=== PATIENT | male | born 1965 | race Caucasian/White ===

== ENCOUNTER 2020-08-22 14:49 | Outpatient (REF) | payer OTHER, SELFPAY ==
--- NOTE | ~2020-08-22 | MR_ITS ---
EXAMINATION: MR KNEE WITHOUT CONTRAST, RIGHT CLINICAL INFORMATION: Unspecified tear of unspecified meniscus, current injury, right knee, initial encounter. Right knee pain. Surgery February 2020. COMPARISON: None TECHNIQUE: MRI of the knee without contrast was performed using routine sequences on a high-field scanner. FINDINGS: MENISCI: Medial Meniscus: The meniscal body is diminished in size, partially extruded medially from the joint line, likely due to a combination of meniscal degeneration and prior partial meniscectomy. There is a degenerative tear of the anterior half of the meniscal body with a dominant horizontal/longitudinal component and extrusion of the majority of the meniscal body from the joint line. A small horizontal undersurface component of the tear is present in the posterior horn. Lateral Meniscus: There is significant free-edge fraying of the posterior horn of the root insertion with subtle undersurface partial tearing is suspected on images 15/26 of series 3 and 4. Lateral meniscus is otherwise intact. No meniscal extrusion. LIGAMENTS: Cruciate: ACL is markedly thickened with increased intrasubstance signal throughout as well as underlying marrow edema signal at the femoral origin and, to a lesser extent, the tibial insertion, consistent with mucoid degeneration. No tears. PCL is intact. Collateral: Trace fluid within the MCL bursa and edema signal around the coronoid ligament are likely reactive to the underlying articular and meniscal abnormalities. MCL and fibular collateral ligaments are intact. Popliteus and biceps tendons are normal. EXTENSOR MECHANISM: Quadriceps and patellar tendons are intact. Minimal patellar tendinosis at the insertion. No tears. ARTICULAR CARTILAGE/BONE: Patellofemoral Compartment: Small to moderate-sized marginal osteophytes. There is mild chondral surface irregularity at the medial patellar facet. At the inferior aspect of the medial trochlear facet, there is a 0.7 x 0.6 cm non-marginal osteophyte with surrounding chondral fissuring. Medial Compartment: Diffuse full-thickness articular cartilage loss is present in the majority of the medial femoral condyle and medial tibial plateau, sparing the far lateral margins. There is associated articular surface remodeling, subarticular marrow edema, articular sclerosis, and prominent marginal osteophytes. Lateral Compartment: Moderate nonuniform articular cartilage loss is present at the medial half of the lateral tibial plateau, extending onto the lateral tibial spine. There is more mild adjacent chondral thinning at the lateral femoral condyle. Small marginal osteophytes are noted. JOINT FLUID AND BURSAE: Moderate to large joint effusion and Zhang's cyst. There is fluid escaping the Zhang's cyst into the superficial fascial plane overlying the medial head of the gastrocnemius muscle, partially included on this study. A synovial cyst is present at the popliteus tendon sheath. MR/MR knee RT wo con IMPRESSION: 1. Severe medial compartment osteoarthritis with associated meniscal degeneration and extrusion of the meniscal body. Probable prior partial meniscectomy. Additional degenerative tearing is evident at the anterior half of the medial meniscal body. 2. Free-edge fraying at the posterior horn of the lateral meniscus with probable subtle undersurface partial tear at the posterior root insertion. 3. Marked mucoid degeneration of the ACL. 4. Mild patellofemoral and [id number] lateral compartment osteoarthritis.
--- NOTE | ~2020-08-22 | XR_ITS ---
EXAMINATION: XR ORBITS (PRE-MRI SCREEN) CLINICAL INFORMATION: Metal injury orbits at 12 years. COMPARISON: None TECHNIQUE: The orbits are imaged in 3 views. FINDINGS: There is no orbital metallic foreign body demonstrated. The orbital rims and floors are unremarkable. There are no air-fluid levels in the sinuses. XR/XR pre mri screening IMPRESSION: No orbital metallic foreign body demonstrated.
== END 2020-08-22 14:50 | disposition home or self-care (01) ==
LOC: HO.MRI 14:49
PROVIDERS: PCP Physician Assistant; Visit Provider Physician Assistant
DX: S83.206A Unspecified tear of unspecified meniscus, current injury, right knee, initial encounter (principal)
CPT/HCPCS: 73721

== ENCOUNTER 2020-09-17 09:52 | Outpatient (REF) | payer OTHER, SELFPAY ==
--- NOTE | ~2020-09-17 | XR_ITS ---
EXAMINATION: XR KNEE, RIGHT CLINICAL INFORMATION: Unspecified tear of unspecified meniscus, current COMPARISON: MRI dated 08/22/2020 TECHNIQUE: AP, lateral, tunnel, and sunrise views of the right knee. FINDINGS: Severe osteoarthritis in the medial compartment as characterized by complete joint space narrowing at the posterior weightbearing surface, subchondral sclerosis, articular surface remodeling, and marginal osteophytes as well as varus angulation at the knee joint. More mild osteoarthritis is evident at the patellofemoral compartments. There is a moderate-sized joint effusion. Soft tissues are swollen at the knee. No acute fractures are identified. XR/XR knee RT 4V IMPRESSION: Severe medial compartment osteoarthritis with mild varus angulation at the knee. Mild lateral and patellofemoral compartment osteoarthritis. Moderate-sized joint effusion.
[2020-09-17 11:06] LABS: Estimated Average Glucose 100 mg/dL; Hemoglobin A1c % 5.1 %
[2020-09-17 11:18] LABS: Alanine Aminotransferase 18 U/L (0-40); Albumin Level 4.2 g/dL (3.5-5.0); Alkaline Phosphatase 106 U/L (39-117); Anion Gap 14 (12-20); Aspartate Amino Transferase 20 U/L (5-37); Bilirubin Total 0.4 mg/dL (0.0-1.0); Blood Urea Nitrogen 13 mg/dL (9-16); Calcium 9.1 mg/dL (8.4-10.2); Carbon Dioxide 28 mmol/L (22-29); Chloride 100 mmol/L (96-108); Cholesterol 199 mg/dL; Estimated Glomerular Filt Rate > 60; Glucose Fasting 79 mg/dL (60-99); HDL Cholesterol 65 mg/dL; LDL Cholesterol Calculated 116 mg/dl; Potassium 4.3 mmol/L (3.3-5.1); Sodium 138 mmol/L (135-145); Total Protein 7.4 g/dL (6.5-8.0); Triglycerides 93 mg/dL
[2020-09-17 11:41] LABS: Prostate Specific Antigen Scr 0.17 ng/mL (<0.05-4.0)
== END 2020-09-17 09:53 | disposition home or self-care (01) ==
LOC: HO.LAB 09:52
PROVIDERS: PCP Physician Assistant; Visit Provider Physician Assistant
DX: Z13.220 Encounter for screening for lipoid disorders (principal); Z12.11 Encounter for screening for malignant neoplasm of colon; Z12.5 Encounter for screening for malignant neoplasm of prostate; Z13.1 Encounter for screening for diabetes mellitus; S83.206A Unspecified tear of unspecified meniscus, current injury, right knee, initial encounter
CPT/HCPCS: 36415; 73564; 80053; 80061; 83036; 84153

== ENCOUNTER → 2020-09-23 12:30 | Outpatient (BNVA) | payer OTHER, SELFPAY | PROVIDERS: Visit Provider Physician Assistant ==

== ENCOUNTER 2020-10-30 08:44 | Outpatient (REF) | payer OTHER, SELFPAY | END 2020-10-30 08:45 | disposition home or self-care (01) | LOC: HO.HOSX 08:44 | PROVIDERS: Visit Provider Orthopaedic Surgery | DX: Z13.89 Encounter for screening for other disorder (principal) ==

== ENCOUNTER 2020-11-07 09:00 | Day surgery (SDC) | payer OTHER, SELFPAY ==
--- NOTE | 2020-11-05 14:05 | P.CONAN_ITS ---
Documented by User: Meghan Mcdonald 11/05/20 14:06 HPI - Anesthesia Eval Consult details Narrative: 55yo M for Colonoscopy [facility] Active Problems Active Problems: All Active Problems (Updated 11/03/20 @ 14:12 by Nidhi Rodriguez) Right knee meniscal tear (Acute) Right knee buckling (Acute) Screening for diabetes mellitus (DM) (Acute) Screening for hypercholesterolemia (Acute) Colon cancer screening (Acute) Past Medical History Medical History Allergic rhinitis Arthritis DDD (degenerative disc disease), lumbar Sciatic leg pain Surgical History Surgical History Hx of elbow surgery Hx of right inguinal hernia repair Social History Social History Household Members: Spouse and Children Patient Tobacco Use Status: Current everyday Tobacco user Tobacco use type: Cigarette Cigarettes Per Day: 7 Are you DNR?: No Advance Directives: No Advance Directives Information Provided: Yes Current occupational status: employed Current occupation: [employer] Allergies Allergy/AdvReac Type Severity Reaction Status Date / Time No Known Allergies Allergy Verified 11/03/20 14:12 Home Medications Medication Instructions Recorded Confirmed Last Taken Type buprenorphine-naloxone [Suboxone] 1 strip SUBLINGUAL DAILY 11/03/20 11/03/20 Unknown History Exam Exam Date and Time: November 05, 2020 1405 Pertinent Lab Results Pertinent Lab Results: Laboratory Tests 12/29/19 09/17/20 08:07 10:18 WBC 7.7 Hgb 15.5 Hct 46.1 Plt Count 286 Sodium 138 Potassium 4.3 Chloride 100 Carbon Dioxide 28 BUN 13 Creatinine 0.81 Assessment and Plan Assessment Anesthesia Assessment: Chart Reviewed Documented by User: Dasia Stevenson 11/07/20 10:03 [facility] Past Medical History Medical History Allergic rhinitis Arthritis DDD (degenerative disc disease), lumbar Sciatic leg pain Surgical History Surgical History Hx of elbow surgery Hx of right inguinal hernia repair Social History Social History Household Members: Spouse and Children Patient Tobacco Use Status: Current everyday Tobacco user Tobacco use type: Cigarette Cigarettes Per Day: 7 Are you DNR?: No Advance Directives: No Advance Directives Information Provided: Yes Current occupational status: employed Current occupation: [employer] Meds Allergies Allergy/AdvReac Type Severity Reaction Status Date / Time No Known Allergies Allergy Verified 11/03/20 14:12 Home Medications Medication Instructions Recorded Confirmed Last Taken Type buprenorphine-naloxone [Suboxone] 1 strip SUBLINGUAL DAILY 11/03/20 11/03/20 Unknown History Exam Airway Mallampati Class: II TM Dist: >3cm Neck ROM: Full Partial: Upper Heart: rrr Lungs: cta Assessment and Plan Assessment Anesthesia Assessment: Anesthesia Plan Discussed and Chart Reviewed Final Anesthetic Review NPO: Yes (Sio water with meds) ASA Class: II Final Preanesthetic Review: No Changes in Pt Med Stat and Consent Obtained/Reviewed Patient Risk: Intermediate Procedure Risk: Intermediate Anesthetic Plan Anesthetic Plan: MAC: Disposition: Standard PACU
[2020-11-07 09:28] VITALS: BP 125/83; PULSE 72; RESP 18; TEMP 36.6; O2SAT 96; BMI 24.4
[2020-11-07] MEDS: Lactated Ringers 1,000 ML 100 ML IVCONT (09:36)
--- NOTE | 2020-11-07 10:00 | W.PM.OPN ---
Operative Note Operative Note Date of Service: 11/07/20 Narrative: Pre-op diagnosis: Colon cancer screening Post-op diagnosis: other (Colon polyps, diverticulosis, hemorrhoids) Procedure: COLONOSCOPY TILL CECUM WITH BIOPSIES AND SNARE POLYPECTOMY Consent: Indications for the procedure and potential complications of bleeding, perforation, reaction to medications and missed diagnosis were discussed with the patient and informed consent was obtained. Instrument: Olympus CF H 190 L variable stiffness adult colonoscope Monitoring: Vital signs and clinical assessment, intermittent blood pressure monitoring, continuous EKG monitoring, Pulse oximetry and Carbon Dioxide monitoring were done throughout the procedure. Colon withdrawl time was 21 minutes. Procedure: The patient was placed in the left lateral decubitis position and pre-procedure medications were administered. After a digital rectal examination of the ano-rectum, the video colonoscope was inserted into the rectum and advanced through the colon to the cecum. The colonoscope was slowly withdrawn in a retrograde panoramic fashion and the colon mucosa was carefully examined including a retroflexed view of the rectum. Findings and interventions are described below. Procedure Difficulty: LLQ pressure applied to intubate the cecum Findings: Terminal Ileum: Not evaluated Cecum: Normal Ascending Colon: Two 8-10 mm sessile polyps in the distal AC removed with a cold snare. Transverse Colon: Normal Descending Colon: Moderate diverticulosis Sigmoid Colon: Severe diverticulosis with luminal narrowing and a sharp turn at 20 cms Rectum: Few 5-7 mm diminutive appearing polyps - one was removed with the cold biopsy Ano-rectum: Small internal hemorrhoids Colon preparation: Good after copious irrigation and fair in some parts of the colon Impression and Post Procedure Diagnosis: Colonoscopy Findings: Three small to medium sized polyps removed Moderate to severe diverticulosis seen in the left colon Small hemorrhoids on retroflexed exam. Plan: Await pathology results Patient has an appointment on 11/26/20 in the [facility] with JOSE Calderon . Repeat Colonoscopy interval based on path results - in 3-5 years if polyps are adenomatous and 10 years if polyps are hyperplastic. Above findings were reviewed with the patient and colon polyps and diverticulosis handouts were given in the discharge area Surgeon: Yannick Flores MD Anesthesia: MAC (Dr Bueno) Was an Elephant Keeper used for this Procedure?: Yes Elephant Keeper: Afshan Mcelroy Estimated blood loss (mL): 0 Pathology: other (A. AC polyps x 2, B. Rectal polyp x1) Condition: stable Disposition: PACU
--- NOTE | 2020-11-07 10:00 | MHC.SHP ---
Pre-Procedural Eval Section A The patient is an INPATIENT: No The History & Physical has been completed within 30 days and I have reviewed it.: No Section B Chief Complaint: Screening Details of Present Illness: Colon Cancer screening Relevant Family History (Specify if Yes): No Relevant Social History: Tobacco Use Present Medications: see Short Stay Collaborative assessment Medical History: Significant History (Meniscal tear of right knee) History of Previous Operations: Relevant previous surgery/procedure and date(s) (Right inguinal hernia surgery) Allergies: Allergies Allergy/AdvReac Type Severity Reaction Status Date / Time No Known Allergies Allergy Verified 11/03/20 14:12 Review of Systems Sugical H&P ROS: Negative: Constitution, Cardiovascular, Respiratory and Gastrointestinal Exam Surgical H&P Exam: Normal: Heart, Normal: Lungs, Normal: Extremities and Normal: Abdomen Plan Diagnosis/Plan: Unchanged I have reviewed the history and physical and performed a pertinent physical examination on my patient. No changes have occurred unless specified.
[2020-11-07 10:50] VITALS: BP 123/76; PULSE 69; RESP 16; TEMP 36.2; O2SAT 95
== END 2020-11-07 11:19 | disposition home or self-care (01) ==
PROVIDERS: PCP Physician Assistant; Visit Provider Internal Medicine Gastroenterology
PROC: 0DJD8ZZ Inspection of Lower Intestinal Tract, Via Natural or Artificial Opening Endoscopic (ICD-10-PCS; CPT 45378; principal; 2020-11-07 10:10)
DX: Z12.11 Encounter for screening for malignant neoplasm of colon (principal); D12.2 Benign neoplasm of ascending colon; K62.1 Rectal polyp; K57.30 Diverticulosis of large intestine without perforation or abscess without bleeding; K64.8 Other hemorrhoids; J30.9 Allergic rhinitis, unspecified; F17.210 Nicotine dependence, cigarettes, uncomplicated; Z79.899 Other long term (current) drug therapy
CPT/HCPCS: 45385; 45380; 88305

== ENCOUNTER 2020-11-10 08:10 | Outpatient (REF) | payer OTHER, SELFPAY ==
--- NOTE | ~2020-11-10 | XR_ITS ---
EXAMINATION: XR KNEE AP STANDING CLINICAL INFORMATION: Knee pain COMPARISON: Radiographs right knee 09/17/2020. TECHNIQUE: Standing AP view of both knees is performed. FINDINGS: Right: There is marked narrowing medial knee joint compartment with subchondral sclerosis and osteophytes from the medial femoral condyle and medial tibial plateau. There is mild genu varus. No visible erosive change or chondrocalcinosis. No destructive process. Left: There is prominent narrowing medial compartment with mild subchondral sclerosis and osteophytes. Severity is lesser than that on the right. There is mild secondary genu varus. No erosive change or definite chondrocalcinosis. No destructive process. XR/XR knee standing BI IMPRESSION: Prominent bilateral medial compartment osteoarthritis, greater on right. Mild bilateral secondary genu varus.
== END 2020-11-10 08:11 | disposition home or self-care (01) ==
LOC: HO.HOSX 08:10
PROVIDERS: Visit Provider Orthopaedic Surgery
DX: M17.11 Unilateral primary osteoarthritis, right knee (principal)
CPT/HCPCS: 20610; 73565; 99212; J1100

== ENCOUNTER → 2020-11-26 10:23 | Outpatient (BNVA) | payer OTHER, SELFPAY | PROVIDERS: PCP Physician Assistant; Visit Provider Physician Assistant ==

== ENCOUNTER 2023-06-28 08:39 | Outpatient (AMB) | payer OTHER, SELFPAY ==
[2023-06-28 08:47] VITALS: BP 100/60; PULSE 67; BMI 23.1
--- NOTE | 2023-06-28 08:47 | A.OFFPC_ITS ---
Vital Signs 06/28/23 08:47 Height 6 ft Weight 170 lb BMI 23.1 BP 100/60 Blood Pressure Location Lt brachial Position Sitting Pulse 67 Pulse Source Pulse Oximeter Oxygen Delivery Method Room Air Intake Visit Reasons: Med review Venetian Blind Tape Cutter Required: No Computer Service Technician: Not Required per policy Accompanied by: Self / Same As Patient Allergies No Known Allergies Allergy (Verified 06/28/23 09:03) Medication List - Last Reconciled 06/28/23 by Alli Nunez PA-C buprenorphine-naloxone 8-2 mg (Suboxone) 1 strip sublingual DAILY gabapentin 800 mg PO BID 30 days ibuprofen 800 mg PO Q8H omeprazole 20 mg PO DAILY sucralfate 10 mL PO BID Tobacco use date assessed: 06/28/23 Dental Screening Dental Screen Date: 06/28/23 Did you have a dental visit in the last 12 months?: No Did you have a dental problem in the last 6 months where you did not have access to dental care?: No Was dental information given to patient?: Patient has dentist HPI Med review HPI Details Patient is a 58 year male here today for visit.? Patient has a past history significant Knee osteoarthritis and bad lateral MCP arthritis, opiate dependence, smoker, tubular adenoma of colon. Osteoarthritis: works full-time in [email or web address] . has been seen by orthopedic whom recommended joint replacement of his knee though has not been able to do this due to his heavy workload and inability to take time off of work. has been using ibuprofen and 600 gabapentin BID and feels some improvement in his pain though would like an increased dose.. ?REport he recently Bukled his right knee while moving right knee in Feb 2020. HE report he felt a pop sensation during this incident. Has been ambulating on his knee over the last 6 months and feels at time his right knee gives out while stepping in certain positions.? .. smoker: he does understand he needs to quit smoking and has found it very difficult to do so. Has tried nicotine replacement and Chantix without any positive results. .. Opiate dependence: he continues to follow a Suboxone clinic( [facility]) he plans on weaning off of Suboxone in the near future. 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 1. Little interest or pleasure in doing things: not at all 2. Feeling down, depressed, or hopeless: not at all 3. Trouble falling or staying asleep, or sleeping too much: not at all 4. Feeling tired or having little energy: not at all 5. Poor appetite or overeating: not at all 6. Feeling bad about yourself - or that you are a failure or have let yourself or your family down: not at all 7. Trouble concentrating on things, such as reading the newspaper or watching television: not at all 8. Moving or speaking so slowly that other people could have noticed. Or the opposite - being so fidgety or restless that you have been moving around a lot more than usual: not at all 9. Thoughts that you would be better off or of hurting yourself in some way: not at all Total score: 0 Depression Screening Interpretation: Negative Depression Screening Done: Yes 90555 - PHQ-9 Billing: Yes Source: Developed by Drs. Horacio Menard, Liliya Yoo, Kasi Ayers and colleagues, with an educational genevieve from [employer]. Thrive Questionnaire Date Thrive assessed: 06/28/23 I am a: Patient What is your living situation today?: I have a steady place to live Within the past 12 months, did the food you bought not last and you didn't have the money to get more?: Never true Within the past 12 months, did you worry whether your food would run out before you got money to buy more?: Never true Do you have trouble paying for medicines?: No Do you have trouble getting transportation to medical appointments?: No Do you have trouble paying your heating and electricity bill?: No Do you have trouble taking care of your child, family member or friend?: No Do you have trouble with day-to-day activities such as bathing, preparing meals, shopping, managing finances, etc.?: No Are you currently unemployed and looking for a job?: No Are you interested in more education?: No Please select the resources that you would like help with: None THRIVE Score: 0 AUDIT C Alcohol Use Questionnaire (AUDIT-C) 1. How often do you have a drink containing alcohol?: Never Total Score: 0 CELESTE-7 AMB Questionnaire CELESTE-7 Date CELESTE - 7 assessed: 06/28/23 Feeling nervous, anxious, or on edge: 0 = Not at all Not being able to stop or control worryin = Not at all Worrying too much about different things: 0 = Not at all Trouble relaxin = Not at all Being so restless that it is hard to sit still: 0 = Not at all Becoming easily annoyed or irritable: 0 = Not at all Feeling afraid as if something awful might happen: 0 = Not at all Total CELESTE-7 score (0-4 normal; 5-9 mild; 10-14 moderate; 15-21 severe): 0 Source: Developed by Drs. Horacio Menard, Liliya Yoo, Kasi Ayers and colleagues, with an educational genevieve from [employer]. CELESTE-7 Assessment Billing CELESTE-7 Assessment Tool: CELESTE-7 Assessment 30749 Review of Systems Const Denies headache(s) Eyes Denies loss of vision ENT Denies vertigo, Denies dizziness, Denies headache(s) and Denies sore throat Card Denies chest pain, Denies leg edema and Denies lightheadedness Resp Denies cough, Denies hemoptysis and Denies wheezing GI Denies abdominal pain, Denies melena, Denies constipation, Denies diarrhea and Denies vomiting Denies dysuria, Denies urinary frequency and Denies urinary urgency Musc Denies arthralgias, Denies joint swelling, Denies numbness and Denies tingling Neuro Denies Abnormal speech present, Denies behavioral changes, Denies vertigo, Denies dizziness, Denies headache(s), Denies loss of vision, Denies memory loss, Denies numbness and Denies tingling Psych Denies anxiety, Denies behavioral changes, Denies depression, Denies memory loss and Denies panic attacks Denys/Lymph Denies easy bleeding and Denies easy bruising Aller/Immun Denies wheezing Physical exam (Primary Care) Vital Signs: Last Vital Signs Pulse 67 06/28/23 08:47 BP 100/60 06/28/23 08:47 Oxygen Delivery Method Room Air 06/28/23 08:47 BMI result Body Mass Index 23.1 Tobacco/Smoking Status: Tobacco use Status Tobacco use date assessed 06/28/23 06/28/23 08:53 Patient Tobacco Use Status Current everyday Tobacco 06/28/23 08:53 Tobacco use type Cigarette 06/28/23 08:53 Are you ready to quit: Yes Tobacco cessation counseling provided: Yes Items discussed: Nicotine replacement and QuitWorks Relapse Prevention: discussed the importance of a supportive environment, discussed negative mood or depression after quitting, weight gain after smoking is common and discussed dietary, exercise and/or lifestyle changes Number of minutes spent counselin CPT code: 84186 - 4-10 Minutes PHQ-9: PHQ-9 Score PHQ-9: Total score 0 06/28/23 09:31 Depression Screening Interpretation: Negative Thrive Assessment: Date of Thrive Assessment Date Thrive assessed 06/28/23 06/28/23 08:53 Const General: healthy appearing, no acute distress, alert and awake Nutritional Appearance: well nourished Orientation/consciousness: oriented to person, oriented to place and oriented to time HENMT Ears: TM's normal bilaterally General nose exam: Normal nasal mucous membranes and turbinates present Eyes Conjunctivae: conjunctivae normal Sclerae: sclerae normal Pupils: Equal, round and reactive pupils present Neck Neck: Yes no lymphadenopathy and Yes no JVD Thyroid: Thyroid normal Carotids: no bruits Resp Effort & Inspection: normal respiratory effort and not tachypneic Auscultation: no crackles, no rales, no rhonchi and no wheezes Cardio Rate: regular rate Rhythm: regular rhythm Heart sounds: no murmurs and normal S1 and S2 GI Palpation (GI): Soft to palpation, nontender, no hepatomegaly and no splenomegaly Auscultation: normal bowel sounds Skin General skin exam: no rashes or lesions noted and dry skin Neuro General: oriented to person, oriented to place and oriented to time Cranial nerves: Yes Equal, round and reactive pupils present Speech: No Abnormal speech present Gait exam (Neuro): Normal gait present Motor exam (neuro): no tremor noted Extrem Right upper extremity: full ROM Left upper extremity: full ROM Right lower extremity: full ROM; no edema Left lower extremity: full ROM; no edema Psych Mental Status: mental status grossly normal Speech and movement: Normal speech and movement present Affect: normal affect Attitude: cooperative Thought process: Normal thought process present Immunizations Boostrix Tdap 2.5 Lf unit-8 mcg-5 Lf/0.5 mL intramuscular syringe Performing Provider: Alli Nunez PA-C [facility] Administered by: CHIQUIS Abdi on 06/28/23 09:32 Dose Route Admin Location Dispensed Lot Number Expiration Date [employer] Parts Room Clerk 0.5 mL IM Left Deltoid 0.5 mL [id number] 05/04/25 [id number] [employer] VIS Given Date VIS Provided VIS Publication Date 06/28/23 Single Vaccine 21 Eligibility Eligibility Date Funding Source Not [facility] Eligible 06/28/23 Private Assessment and Plan Assessment & Plan (1) HLD (hyperlipidemia): Code(s): E78.5 - Hyperlipidemia, unspecified Qualifiers: Hyperlipidemia type: mixed hyperlipidemia Qualified Code(s): E78.2 - Mixed hyperlipidemia Plan: Patient does have history of borderline high cholesterol. Will recheck fasting lipid panel with goal LDL to be below 160 (2) Tubular adenoma: Comment: Repeat colonoscopy 3 years-2 large adenomas 1 hyperplastic Code(s): D36.9 - Benign neoplasm, unspecified site Plan: Patient does have history of large tubular adenoma polyp. Needed repeat colonoscopy in 3 years. Will refer back to gastroenterology. (3) Smoker: Code(s): F17.200 - Nicotine dependence, unspecified, uncomplicated Plan: Patient does understand he really needs to quit smoking. Has trial nicotine replacement and Chantix without much relief. Advised on the use of Wellbutrin and he is now willing to try. He will work on weaning down his cigarette smoking on his own. (4) Screening for diabetes mellitus (DM): Code(s): Z13.1 - Encounter for screening for diabetes mellitus (5) Localized osteoarthritis of right knee: Code(s): M17.11 - Unilateral primary osteoarthritis, right knee Plan: He is very interested in getting any replacement though has not been able to take time off of work to do so. 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 I informed him about FMLA that will retain his job and he will look into this. he is interested in increasing his dose of gabapentin dose to t.i.d. dosing. He will Continue with use of ibuprofen on a p.r.n. basis. (6) Opiate dependence: Code(s): F11.20 - Opioid dependence, uncomplicated Qualifiers: Substance use status: uncomplicated Qualified Code(s): F11.20 - Opioid dependence, uncomplicated Plan: Followed by yvonne bartholomew ( [facility]) (7) Symptomatic varicose veins: Code(s): I83.899 - Varicose veins of unspecified lower extremity with other complications Qualifiers: Laterality: right Qualified Code(s): I83.891 - Varicose veins of right lower extremity with other complications Plan: Has developed symptomatic (burning, itching) lower extremity bulging veins. Likely has peripheral vascular disease from his years of smoking. He is interested in seeing a vascular surgeon about treatment. Orders: Orders Lipid Panel 06/28/23 E78.2 - Mixed hyperlipidemia Comprehensive [place]. Panel Fast 06/28/23 Z13.1 - Encounter for screening for diabetes mellitus Prostate Specific Antigen Scr 06/28/23 D36.9 - Benign neoplasm, unspecified site, Z12.5 - Encounter for screening for malignant neoplasm of prostate TDaP Immunization 06/28/23 E78.5 - Hyperlipidemia, unspecified, Z23 - Encounter for immunization Referrals Gastroenterology Referral D36.9 - Benign neoplasm, unspecified site Thoracic Surgery Referral F17.200 - Nicotine dependence, unspecified, uncomplicated Vascular Surgery Referral I83.891 - Varicose veins of right lower extremity with other complications Medications: New bupropion HCl (Wellbutrin SR) 150 mg PO BID 30 days 60 tabs 3RF F17.200 - Nicotine dependence, unspecified, uncomplicated Changed From gabapentin 800 mg PO BID 30 days 60 tabs 3RF M17.11 - Unilateral primary osteoarthritis, right knee To gabapentin 800 mg PO TID 30 days 90 tabs 3RF M17.11 - Unilateral primary osteoarthritis, right knee Coding Level of Care Code Est Pt Level 4 (05176) Diagnoses Mixed hyperlipidemia E78.2 Hyperlipidemia type: mixed hyperlipidemia Tubular adenoma D36.9 Smoker F17.200 Screening for diabetes mellitus (DM) Z13.1 Localized osteoarthritis of right knee M17.11 Uncomplicated opioid dependence F11.20 Substance use status: uncomplicated Symptomatic varicose veins of right lower extremity I83.891 Laterality: right Additional Codes Vital Signs *Quality* - CPT code: 47763 - 4-10 Minutes ([id number]) CELESTE-7 Assessment Billing - CELESTE-7 Assessment Tool: CELESTE-7 Assessment 26383 ([id number])
== END 2023-06-28 09:34 | disposition home or self-care (01) ==
PROVIDERS: PCP Physician Assistant; Visit Provider Physician Assistant
DX: Z23 Encounter for immunization (principal)
CPT/HCPCS: 90471; 90715; 99214

== ENCOUNTER 2024-01-26 09:44 | Outpatient (AMB) | payer OTHER, SELFPAY ==
[2024-01-26 09:46] VITALS: BP 126/60; PULSE 80; O2SAT 98; BMI 21.7
--- NOTE | 2024-01-26 09:46 | MHC.PC.OV ---
Vital Signs 01/26/24 09:46 Height 6 ft Blood Pressure Location Lt brachial Position Sitting Pulse Source Pulse Oximeter Oxygen Delivery Method Room Air Intake Visit Reasons: follow up Allergies No Known Allergies Allergy (Verified 06/28/23 09:03) Tobacco use date assessed: 06/28/23 Dental Screening Dental Screen Date: 06/28/23 [facility] Medical History Allergic rhinitis Arthritis DDD (degenerative disc disease), lumbar Sciatic leg pain Surgical History H/O colonoscopy Hx of right inguinal hernia repair Hx of elbow surgery Social History Household Members: Spouse and Children Alcohol intake: current Alcohol intake frequency: a few times a month Alcohol type: beer Patient Tobacco Use Status: Current everyday Tobacco user Tobacco use type: Cigarette Cigarettes Per Day: 7 Current occupational status: employed 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 Horacio Menard, Liliya Yoo, Kasi Ayers and colleagues, with an educational genevieve from [employer]. Physical exam (Primary Care) Tobacco/Smoking Status: Tobacco use Status Tobacco use date assessed 06/28/23 06/28/23 08:53 Patient Tobacco Use Status Current everyday Tobacco 06/28/23 08:53 Tobacco use type Cigarette 06/28/23 08:53 Thrive Assessment: Date of Thrive Assessment Date Thrive assessed 06/28/23 06/28/23 08:53 Coding
--- NOTE | 2024-01-26 09:49 | A.OFFPC_ITS ---
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 Accompanied by: Self / Same As Patient Allergies bupropion Adverse Reaction (Intermediate, Verified 01/26/24 10:05) mood changes Medication List - Last Reconciled 01/26/24 by Alli Nunez PA-C buprenorphine-naloxone 8-2 mg (Suboxone) 1 strip sublingual DAILY gabapentin 800 mg PO TID 30 days ibuprofen 800 mg PO Q8H Tobacco use date assessed: 06/28/23 Dental Screening Dental Screen Date: 01/26/24 Did you have a dental visit in the last 12 months?: No Did you have a dental problem in the last 6 months where you did not have access to dental care?: Yes Was dental information given to patient?: Yes HPI PE HPI Details Patient is a 58 year male here today for routine annual physical.? Patient has a past history significant Knee osteoarthritis and bad lateral MCP arthritis, opiate dependence, smoker, tubular adenoma of colon. Concern--> have noted a 10 lb weight loss over the last 8 months. He does admit to some night sweats as well. He is eager to get cancer screenings such as lung cancer screening and colon cancer screening. Of note did have tubular adenoma polyp in 2020. Continues to be a daily smoker and does understand he needs to quit. Osteoarthritis: works full-time in [employer] . has been seen by orthopedic whom recommended joint replacement of his knee though has not been able to do this due to his heavy workload and inability to take time off of work. has been using ibuprofen and 600 gabapentin 800 TID and feels some improvement in his pain though would like an increased dose.. ? .. smoker: he does understand he needs to quit smoking and has found it very difficult to do so. Has tried nicotine replacement, Wellbutrin and Chantix in the past without significant being able to quit smoking. He is willing to try Chantix again as it has been 10 years since he has tried it. .. Opiate dependence: he continues to follow a Suboxone clinic( [facility]) he plans on weaning off of Suboxone in the near future. Vaccines: Up-to-date with pneumonia vaccine, tetanus vaccine, considering flu and shingles vaccines. Colorectal cancer screening: Done in 2020, tubular adenoma polyp found repeat 3-5 years, unfortunately no showed his recent GI appointment. Laboratory Tests 12/29/19 08:07 Fasting Glucose 100 H Hemoglobin A1c 5.3 Cholesterol 219 Total PSA 0.22 OTTO Screen Positive H OTTO Titer 1:640 H PFSH Medical History Sciatic leg pain Arthritis DDD (degenerative disc disease), lumbar Allergic rhinitis Surgical History H/O colonoscopy Hx of right inguinal hernia repair Hx of elbow surgery Social History (Updated 01/26/24 @ 10:05 by Alli Nunez PA-C) Household Members: Spouse and Children Housing: Apartment Alcohol intake: current Alcohol intake frequency: a few times a month Alcohol type: beer Patient Tobacco Use Status: Current everyday Tobacco user Tobacco use type: Cigarette Cigarettes Per Day: 7 e-Cigarette/Vaping Use: Never Used Current occupational status: employed 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 Horacio Menard, Liliya Yoo, Kasi Ayers and colleagues, with an educational genevieve from [employer]. Review of Systems Const Denies body aches, Denies chills, Denies excessive sweating, Denies fatigue, Denies fever(s) and Denies headache(s) Eyes Denies blurry vision ENT Denies dysphagia, Denies vertigo, Denies dizziness, Denies headache(s), Denies hearing loss and Denies tinnitus Card Denies chest pain, Denies chest pain with activity, Denies syncope, Denies irregular heart rhythm and Denies dyspnea Resp Denies chest congestion, Denies cough, Denies hemoptysis, Denies dyspnea and Denies wheezing GI Denies abdominal pain, Denies melena, Denies hematochezia, Denies coffee ground emesis, Denies dysphagia, Denies diarrhea, Denies nausea and Denies vomiting Denies difficulty urinating, Denies dysuria, Denies urinary frequency, Denies urinary hesitancy and Denies urinary urgency Musc Denies arthralgias, Denies limited range of motion, Denies muscle cramps and Denies muscle weakness Skin/Breast Denies rash and Denies skin ulcer Neuro Denies Abnormal speech present, Denies confusion, Denies vertigo, Denies dizziness, Denies syncope, Denies headache(s), Denies memory loss and Denies seizure-like activity Psych Denies anxiety, Denies confusion, Denies depression, Denies memory loss, Denies panic attacks and Denies paranoia Endo Denies excessive sweating, Denies fatigue, Denies flushing, Denies polydipsia and Denies polyuria Aller/Immun Denies wheezing Physical exam (Primary Care) Vital Signs: Last Vital Signs Pulse 80 01/26/24 09:46 BP 126/60 01/26/24 09:46 Pulse Ox 98 01/26/24 09:46 Oxygen Delivery Method Room Air 01/26/24 09:46 BMI result Body Mass Index 21.7 Tobacco/Smoking Status: Tobacco use Status Tobacco use date assessed 06/28/23 01/26/24 09:53 Patient Tobacco Use Status Current everyday Tobacco 01/26/24 10:05 Tobacco use type Cigarette 01/26/24 10:05 e-Cigarette/Vaping Use Never Used 01/26/24 10:05 Thrive Assessment: Date of Thrive Assessment Date Thrive assessed 06/28/23 01/26/24 09:53 Const General: cooperative, comfortable, no acute distress, alert and awake; No confusion Orientation/consciousness: oriented to person, oriented to place, patient oriented x3 and No confusion HENMT Head: Yes normocephalic Ears: external ears normal and TM's normal bilaterally Face and sinus: No sinus tenderness Mouth: Normal oral and palatal mucosa present and tongue normal Teeth and gingiva: dentition normal and gingiva normal Throat: Yes posterior oropharynx normal, Yes tonsils normal and Yes uvula midline Eyes Conjunctivae: conjunctivae normal Sclerae: sclerae normal Pupils: Equal, round and reactive pupils present EOM: EOMs intact bilaterally Direct Ophthalmoscopy: No no photophobia Neck Neck: Yes no lymphadenopathy, No tender and Yes no JVD Thyroid: Thyroid normal Carotids: no bruits Chest Chest palpation & inspection: no tenderness Resp Effort & Inspection: normal respiratory effort, no audible wheezes, not labored and no stridor Auscultation: no crackles, no rales, no rhonchi and no wheezes Cardio Jugular venous distension: no JVD Rate: regular rate, not bradycardic and not tachycardic Rhythm: regular rhythm Bruits: no carotid bruits Peripheral pulses: Peripheral pulses 2+ throughout GI Inspection: Yes normal to inspection, No abdominal wall ecchymosis and No visible herniation Palpation (GI): Soft to palpation, nontender, no guarding, not rigid and No hepatosplenomegaly present Auscultation: normoactive bowel sounds General: Yes no CVA tenderness Back/Spine/Pelvis Back: no CVA tenderness and No back tenderness Cervical Spine: cervical ROM normal Thoracic/Lumbar Spine: thoracic and lumbar spine normal to inspection, straight leg raise negative bilaterally, No thoraco-lumbar ROM limited and No lumbar spinal tenderness Skin Lesions: no lesions Rashes: no rashes Wounds: no wounds Neuro General: oriented to person, oriented to place, patient oriented x3, CN's II-XI intact bilaterally and No confusion Cranial nerves: Yes Equal, round and reactive pupils present and Yes Normal accommodation reflex present Cognition (Neuro): normal cognition Speech: No Abnormal speech present Gait exam (Neuro): Normal gait present Motor exam (neuro): 5/5 motor strength present throughout Extrem Right upper extremity: full ROM; no cyanosis Left upper extremity: full ROM; no cyanosis Right lower extremity: no edema Left lower extremity: no edema Psych Appearance: grossly normal Mental Status: mental status grossly normal Affect: normal affect Attitude: cooperative Thought process: Normal thought process present Assessment and Plan Assessment & Plan (1) Annual physical exam: Code(s): Z00.00 - Encounter for general adult medical examination without abnormal findings (2) HLD (hyperlipidemia): Code(s): E78.5 - Hyperlipidemia, unspecified Qualifiers: Hyperlipidemia type: mixed hyperlipidemia Qualified Code(s): E78.2 - Mixed hyperlipidemia Plan: Patient does have history of borderline high cholesterol. Will recheck fasting lipid panel with goal LDL to be below 160 (3) Tubular adenoma: Comment: Repeat colonoscopy 3 years-2 large adenomas 1 hyperplastic Code(s): D36.9 - Benign neoplasm, unspecified site Plan: Patient does have history of large tubular adenoma polyp. Needed repeat colonoscopy in 3 years. Will refer back to gastroenterology. (4) Smoker: Code(s): F17.200 - Nicotine dependence, unspecified, uncomplicated Plan: Patient does understand he really needs to quit smoking. Has trial nicotine replacement and Chantix without much relief. Advised on the use of Wellbutrin and he is now willing to try. He will work on weaning down his cigarette smoking on his own. He is willing to start with lung cancer screening program (5) Screening for diabetes mellitus (DM): Code(s): Z13.1 - Encounter for screening for diabetes mellitus (6) Localized osteoarthritis of right knee: Code(s): M17.11 - Unilateral primary osteoarthritis, right knee Plan: He is very interested in getting any replacement though has not been able to take time off of work to do so. 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 I informed him about FMLA that will retain his job and he will look into this. he is interested in increasing his dose of gabapentin dose to QID dosing He will Continue with use of ibuprofen on a p.r.n. basis. Will increase his gabapentin dose to maximal dose to 800 QID, explain the patient that I can not increase his dose any further. (7) Opiate dependence: Code(s): F11.20 - Opioid dependence, uncomplicated Qualifiers: Substance use status: uncomplicated Qualified Code(s): F11.20 - Opioid dependence, uncomplicated Plan: Followed by yvonne bartholomew ( [facility]) Orders: Orders XR knee RT 3V Today S83.206A - Unspecified tear of unspecified meniscus, current injury, right knee, initial encounter Referrals Vascular Surgery Referral I83.891 - Varicose veins of right lower extremity with other complications Gastroenterology Referral D36.9 - Benign neoplasm, unspecified site Thoracic/General Surgery Referral F17.200 - Nicotine dependence, unspecified, uncomplicated Medications: New varenicline 0.5 mg PO; Take 0.5 mg qd x 3 days, then 0.5 mg b.i.d. x4 days 11 tabs 0RF 7 days F17.200 - Nicotine dependence, unspecified, uncomplicated varenicline 1 mg PO BID 56 tabs 3RF 28 days F17.200 - Nicotine dependence, unspecified, uncomplicated Changed From gabapentin 800 mg PO TID 30 days 90 tabs 3RF M17.11 - Unilateral primary osteoarthritis, right knee To gabapentin 800 mg PO QID 120 tabs 3RF 30 days M17.11 - Unilateral primary osteoarthritis, right knee From ibuprofen 800 mg PO Q8H M17.11 - Unilateral primary osteoarthritis, right knee To ibuprofen 800 mg PO Q8H 90 tabs 1RF 30 days M17.11 - Unilateral primary osteoarthritis, right knee Coding Level of Care Code Est Pt Prev Care 40-64y(40158) Diagnoses Annual physical exam Z00.00 Mixed hyperlipidemia E78.2 Hyperlipidemia type: mixed hyperlipidemia Tubular adenoma D36.9 Smoker F17.200 Screening for diabetes mellitus (DM) Z13.1 Localized osteoarthritis of right knee M17.11 Uncomplicated opioid dependence F11.20 Substance use status: uncomplicated
== END 2024-01-26 10:38 | disposition home or self-care (01) ==
PROVIDERS: PCP Physician Assistant; Visit Provider Physician Assistant
DX: Z00.00 Encounter for general adult medical examination without abnormal findings (principal); E78.2 Mixed hyperlipidemia; F11.20 Opioid dependence, uncomplicated; D36.9 Benign neoplasm, unspecified site; F17.200 Nicotine dependence, unspecified, uncomplicated; Z13.1 Encounter for screening for diabetes mellitus; M17.11 Unilateral primary osteoarthritis, right knee
CPT/HCPCS: 99396

== ENCOUNTER 2024-05-01 10:08 | Outpatient (AMB) | payer OTHER, SELFPAY ==
--- NOTE | 2024-05-01 10:07 | A.OFFPC_ITS ---
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 x4 days 7 days varenicline 1 mg PO BID 28 days Tobacco use date assessed: 06/28/23 Dental Screening Dental Screen Date: 01/26/24 HPI 3 month f/u HPI Details Patient is a 59 year male being evaluated today via telephone only.? Patient has a past history significant Knee osteoarthritis and bad lateral MCP arthritis, opiate dependence, smoker, tubular adenoma of colon. Osteoarthritis: works full-time in [employer] . has been seen by orthopedic whom recommended joint replacement of his knee though has not been able to do this due to his heavy workload and inability to take time off of work. has been using ibuprofen and 600 gabapentin 800 TID and feels some improvement in his pain though would like an increased dose.. ? .. smoker: he does understand he needs to quit smoking and has found it very difficult to do so. Has tried nicotine replacement, Wellbutrin and Chantix in the past without significant being able to quit smoking. Has upcoming appointment with lung cancer screening program .. Opiate dependence: he continues to follow a Suboxone clinic( [facility]) he plans on weaning off of Suboxone in the near future. [facility] Medical History Localized osteoarthritis of right knee Opiate dependence HLD (hyperlipidemia) Tubular adenoma Arthritis DDD (degenerative disc disease), lumbar Sciatic leg pain Allergic rhinitis Nicotine dependence, cigarettes, uncomplicated Surgical History History of colonoscopy History of right inguinal hernia repair History of elbow surgery Social History Household Members: Spouse and Children Housing: Apartment Alcohol intake: current Alcohol intake frequency: a few times a month Alcohol type: beer Patient Tobacco Use Status: Current everyday Tobacco user Tobacco use type: Cigarette Cigarettes Per Day: 7 e-Cigarette/Vaping Use: Never Used service: No Current occupational status: employed 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 1. Little interest or pleasure in doing things: not at all 2. Feeling down, depressed, or hopeless: not at all 3. Trouble falling or staying asleep, or sleeping too much: not at all 4. Feeling tired or having little energy: not at all 5. Poor appetite or overeating: not at all 6. Feeling bad about yourself - or that you are a failure or have let yourself or your family down: not at all 7. Trouble concentrating on things, such as reading the newspaper or watching television: not at all 8. Moving or speaking so slowly that other people could have noticed. Or the opposite - being so fidgety or restless that you have been moving around a lot more than usual: not at all 9. Thoughts that you would be better off or of hurting yourself in some way: not at all Total score: 0 Depression Screening Interpretation: Negative Depression Screening Done: Yes 81993 - PHQ-9 Billing: Yes Source: Developed by Drs. Horacio Menard, Liliya Yoo, Kasi Ayers and colleagues, with an educational genevieve from [employer]. Thrive Questionnaire Date Thrive assessed: 05/01/24 I am a: Patient What is your living situation today?: I have a steady place to live Within the past 12 months, did the food you bought not last and you didn't have the money to get more?: Never true Within the past 12 months, did you worry whether your food would run out before you got money to buy more?: Never true Do you have trouble paying for medicines?: No Do you have trouble getting transportation to medical appointments?: No Do you have trouble paying your heating and electricity bill?: No Do you have trouble taking care of your child, family member or friend?: No Do you have trouble with day-to-day activities such as bathing, preparing meals, shopping, managing finances, etc.?: No Are you currently unemployed and looking for a job?: No Are you interested in more education?: No Please select the resources that you would like help with: None Currently or been in a relationship where the following occur: No concerns reported THRIVE Score: 0 AUDIT C Alcohol Use Questionnaire (AUDIT-C) 1. How often do you have a drink containing alcohol?: Never 3. How often do you have six or more drinks on one occasion?: Never Total Score: 0 CELESTE-7 AMB Questionnaire CELESTE-7 Date CELESTE - 7 assessed: 05/01/24 Feeling nervous, anxious, or on edge: 0 = Not at all Not being able to stop or control worryin = Not at all Worrying too much about different things: 0 = Not at all Trouble relaxin = Not at all Being so restless that it is hard to sit still: 0 = Not at all Becoming easily annoyed or irritable: 0 = Not at all Feeling afraid as if something awful might happen: 0 = Not at all Total CELESTE-7 score (0-4 normal; 5-9 mild; 10-14 moderate; 15-21 severe): 0 Source: Developed by Drs. Horacio Menard, Liliya Yoo, Kasi Ayers and colleagues, with an educational genevieve from [employer]. CELESTE-7 Assessment Billing CELESTE-7 Assessment Tool: CELESTE-7 Assessment 61184 Review of Systems Const Denies headache(s) Eyes Denies loss of vision ENT Denies vertigo, Denies dizziness, Denies headache(s) and Denies sore throat Card Denies chest pain, Denies leg edema and Denies lightheadedness Resp Denies cough, Denies hemoptysis and Denies wheezing GI Denies abdominal pain, Denies melena, Denies constipation, Denies diarrhea and Denies vomiting Denies dysuria, Denies urinary frequency and Denies urinary urgency Musc Denies arthralgias, Denies joint swelling, Denies numbness and Denies tingling Neuro Denies behavioral changes, Denies vertigo, Denies dizziness, Denies headache(s), Denies loss of vision, Denies memory loss, Denies numbness and Denies tingling Psych Denies anxiety, Denies behavioral changes, Denies depression, Denies memory loss and Denies panic attacks Denys/Lymph Denies easy bleeding and Denies easy bruising Aller/Immun Denies wheezing Physical exam (Primary Care) Tobacco/Smoking Status: Tobacco use Status Tobacco use date assessed 06/28/23 05/01/24 10:08 Patient Tobacco Use Status Current everyday Tobacco 05/01/24 10:08 Tobacco use type Cigarette 05/01/24 10:08 e-Cigarette/Vaping Use Never Used 05/01/24 10:08 PHQ-9: PHQ-9 Score PHQ-9: Total score 0 05/01/24 10:10 Depression Screening Interpretation: Negative Thrive Assessment: Date of Thrive Assessment Date Thrive assessed 05/01/24 05/01/24 10:10 Currently or been in a relationship where the following occur: No concerns reported Telehealth Telehealth Telehealth Platform: Telephone Location of provider rendering services: practice address Location of patient: address on file Patient Identification confirmed using: Name, : Yes Telehealth method: voice only Patient verbally consented to treatment: Yes Patient verbally consented to billing insurance company: Yes Patient informed of any privacy concerns related to visit: Yes Minutes spent on Phone/Video with Pt.: 11 Coding Level of Care Code Tele Est Pt Level 3 (31780) Diagnoses Mixed hyperlipidemia E78.2 Hyperlipidemia type: mixed hyperlipidemia Uncomplicated opioid dependence F11.20 Substance use status: uncomplicated Nicotine dependence, cigarettes, uncomplicated F17.210 Additional Codes CELESTE-7 Assessment Billing - CELESTE-7 Assessment Tool: CELESTE-7 Assessment 56469 ( [id number]) PHQ-9 - 24332 - PHQ-9 Billing: Yes ([id number]) Assessment & Plan Assessment & Plan (1) HLD (hyperlipidemia): Code(s): E78.5 - Hyperlipidemia, unspecified Category: Medical Qualifiers: Hyperlipidemia type: mixed hyperlipidemia Qualified Code(s): E78.2 - Mixed hyperlipidemia Plan: Has yet to get fasting labs to recheck his fasting lipid panel (2) Opiate dependence: Comment: (Stable on Suboxone - Followed by yvonne Bravo Ma) Code(s): F11.20 - Opioid dependence, uncomplicated Category: Medical Qualifiers: Substance use status: uncomplicated Qualified Code(s): F11.20 - Opioid dependence, uncomplicated Plan: Continues to follow a Suboxone clinic. (3) Nicotine dependence, cigarettes, uncomplicated: Code(s): F17.210 - Nicotine dependence, cigarettes, uncomplicated Category: Medical Plan: Unfortunately still smoking. Does have Chantix available to him. Has upcoming appointment with lung cancer screening program
== END 2024-05-01 10:37 | disposition home or self-care (01) ==
LOC: HO.HMCH 10:08
PROVIDERS: PCP Physician Assistant; Visit Provider Physician Assistant
DX: E78.2 Mixed hyperlipidemia (principal); F11.20 Opioid dependence, uncomplicated; F17.210 Nicotine dependence, cigarettes, uncomplicated

== ENCOUNTER → 2024-05-01 10:08 | Outpatient (BNVA) | payer OTHER, SELFPAY | PROVIDERS: PCP Physician Assistant; Visit Provider Physician Assistant | DX: E78.2 Mixed hyperlipidemia (principal); F11.20 Opioid dependence, uncomplicated; F17.210 Nicotine dependence, cigarettes, uncomplicated | CPT/HCPCS: 96127 ==

== ENCOUNTER 2024-05-18 10:36 | Outpatient (AMB) | payer OTHER, SELFPAY ==
--- NOTE | 2024-04-13 07:48 | MHC.OFFVIS ---
Intake Visit Reasons: Current Smoker Allergies bupropion Adverse Reaction (Intermediate, Verified 01/26/24 10:05) mood changes HPI HPI Current Smoker: Details: Initial visit for this 59yo smoker with a []PYH. Patient started smoking at age [] for [] years at []ppd. . Denies marijuana use. Denies second hand smoke exposure. Denies exposure to chemicals or substances like asbestos. . Denies known family history of lung cancer. Denies personal history of cancers. Denies chest CT in last year. . Denies recent travel outside the [place]. Denies recent respiratory illness or recent hospitalization for respiratory issues. Denies testing positive for COVID. Admits receiving COVID Vaccine. Brand:[] Location: [] Date: [] . Denies fever, chills, new/worsening cough, hemoptysis, hoarseness or dysphagia. Denies significant chest pain, significant dyspnea or unintentional weight loss. Patient Lung Cancer Screening Questionnaire reviewed with patient by provider. . Shared Decision Making Completed. Patient meets criteria. Discussed in detail with patient, the risk vs benefit of LDCT screening. Patient consents to proceed with scan. Discussed smoking cessation. [facility] Medical History (Updated 04/09/24 @ 15:41 by Kendra Schwartz PA-C) Localized osteoarthritis of right knee Opiate dependence HLD (hyperlipidemia) Tubular adenoma Arthritis DDD (degenerative disc disease), lumbar Sciatic leg pain Allergic rhinitis Nicotine dependence, cigarettes, uncomplicated Surgical History (Updated 03/26/24 @ 14:54 by Kendra Schwartz PA-C) History of colonoscopy History of right inguinal hernia repair History of elbow surgery Social History (Updated 01/26/24 @ 10:05 by Alli Nunez PA-C) Household Members: Spouse and Children Housing: Apartment Alcohol intake: current Alcohol intake frequency: a few times a month Alcohol type: beer Patient Tobacco Use Status: Current everyday Tobacco user Tobacco use type: Cigarette Cigarettes Per Day: 7 e-Cigarette/Vaping Use: Never Used Current occupational status: employed 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 - Patient meets criteria for LDCT for lung cancer screening purposes and is asymptomatic. - Smoking cessation counseling offered. Patients can always call [phone]. - Will arrange for a LDCT scan of the chest for screening purposes at [facility]. - Risks, benefits, and alternatives were discussed in detail and the patient agrees to proceed. - Risks discussed include but are not limited to: radiation exposure, anxiety during testing and while awaiting results, false negatives, false positives and possibility of additional intervention such as further imaging or surgical procedures for benign disease. - Benefits are obviously detection of lung cancer at an early stage which can lead to improved outcomes. - Discussed the importance of screening program compliance with adherence to yearly LDCT scan as scheduled - or sooner interval scans for personalized screening regimen. - Discussed follow up plan. Our office will send a letter discussing results and if needed set up phone call and office visit based on CT findings. - Patient educated on results categorization and the management decisions for suspicious findings potentially found on the screening LDCT scan. Any patient with a Lung RADS score of 3 or 4 will be reviewed by a multidisciplinary team at [facility] to form a plan of action in regards to scan findings. - If further work up is warranted for a suspicious lung finding this will be followed by the Lung Cancer Screening program in conjunction with the Thoracic Surgery Department at [facility]. - A copy of the office note and LDCT will be sent to the patient's PCP - as well as documentation on any associated further plans of care. - Incidental findings on LDCT are the PCP's responsibility. These findings are indicated with an S finding on the LDCT Assessment. A note discussing the findings will be sent to the PCP who is then responsible for further management. - All questions answered.? Coding Level of Care Code Lung Cancer Screening G0296 Diagnoses Nicotine dependence, cigarettes, uncomplicated F17.210
--- NOTE | 2024-05-18 07:57 | A.OFFVIS_ITS ---
Intake Visit Reasons: Current Smoker Allergies bupropion Adverse Reaction (Intermediate, Verified 05/01/24 10:17) mood changes HPI HPI Current Smoker: Details: Initial visit for this 59yo smoker with a 30PYH. Patient started smoking at age 14 for 45 years at 3/4-1ppd. Currently at 1/2ppd. . Denies marijuana use. Notes social second hand smoke exposure. Notes exposure to asbestos and soot and concrete dust. . Denies known family history of lung cancer. Denies personal history of cancers. Denies chest CT in last year. . Denies recent travel outside the [place]. Denies recent respiratory illness or recent hospitalization for respiratory issues. Denies testing positive for COVID. Denies receiving COVID Vaccine. . Denies fever, chills, new/worsening cough, hemoptysis, hoarseness or dysphagia. Denies significant chest pain, significant dyspnea or unintentional weight loss. Patient Lung Cancer Screening Questionnaire reviewed with patient by provider. . Shared Decision Making Completed. Patient meets criteria. Discussed in detail with patient, the risk vs benefit of LDCT screening. Patient consents to proceed with scan. Discussed smoking cessation. [facility] Medical History (Updated 05/18/24 @ 10:48 by Kendra Schwartz PA-C) Localized osteoarthritis of right knee Opiate dependence HLD (hyperlipidemia) Tubular adenoma Arthritis DDD (degenerative disc disease), lumbar Sciatic leg pain Allergic rhinitis Nicotine dependence, cigarettes, uncomplicated Surgical History History of colonoscopy History of right inguinal hernia repair History of elbow surgery Social History (Updated 05/18/24 @ 10:48 by Kendra Schwartz PA-C) Household Members: Spouse and Children Housing: Apartment Alcohol intake: current Alcohol intake frequency: a few times a month Alcohol type: beer Patient Tobacco Use Status: Current everyday Tobacco user Tobacco use type: Cigarette Cigarettes Per Day: 7 Years Smoked: (onset 14yo, 3/4-1ppd x 45yrs, now 1/2ppd - 30pyh) e-Cigarette/Vaping Use: Never Used service: No Current occupational status: employed 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 - Patient meets criteria for LDCT for lung cancer screening purposes and is asymptomatic. - Smoking cessation counseling offered. Patients can always call [phone]. - Will arrange for a LDCT scan of the chest for screening purposes at [facility]. - Risks, benefits, and alternatives were discussed in detail and the patient agrees to proceed. - Risks discussed include but are not limited to: radiation exposure, anxiety during testing and while awaiting results, false negatives, false positives and possibility of additional intervention such as further imaging or surgical procedures for benign disease. - Benefits are obviously detection of lung cancer at an early stage which can lead to improved outcomes. - Discussed the importance of screening program compliance with adherence to yearly LDCT scan as scheduled - or sooner interval scans for personalized screening regimen. - Discussed follow up plan. Our office will send a letter discussing results and if needed set up phone call and office visit based on CT findings. - Patient educated on results categorization and the management decisions for suspicious findings potentially found on the screening LDCT scan. Any patient with a Lung RADS score of 3 or 4 will be reviewed by a multidisciplinary team at [facility] to form a plan of action in regards to scan findings. - If further work up is warranted for a suspicious lung finding this will be followed by the Lung Cancer Screening program in conjunction with the Thoracic Surgery Department at [facility]. - A copy of the office note and LDCT will be sent to the patient's PCP - as well as documentation on any associated further plans of care. - Incidental findings on LDCT are the PCP's responsibility. These findings are indicated with an S finding on the LDCT Assessment. A note discussing the findings will be sent to the PCP who is then responsible for further management. - All questions answered.? Coding Level of Care Code Lung Cancer Screening G0296 Diagnoses Nicotine dependence, cigarettes, uncomplicated F17.210
== END 2024-05-18 11:45 | disposition home or self-care (01) ==
PROVIDERS: PCP Physician Assistant; Visit Provider Physician Assistant Medical
DX: F17.210 Nicotine dependence, cigarettes, uncomplicated (principal)
CPT/HCPCS: G0296

== ENCOUNTER 2024-05-18 10:48 | Outpatient (REF) | payer OTHER, SELFPAY | END 2024-05-18 10:49 | disposition home or self-care (01) | LOC: HO.CT 10:48 | PROVIDERS: PCP Physician Assistant; Visit Provider Physician Assistant Medical | DX: Z12.2 Encounter for screening for malignant neoplasm of respiratory organs (principal); F17.210 Nicotine dependence, cigarettes, uncomplicated | CPT/HCPCS: 71271; G0296 ==

== ENCOUNTER → 2024-05-18 10:50 | Outpatient (BNV) | payer OTHER, SELFPAY | PROVIDERS: PCP Physician Assistant; Visit Provider Radiology Diagnostic Radiology | DX: R91.8 Other nonspecific abnormal finding of lung field (principal); Z87.891 Personal history of nicotine dependence | CPT/HCPCS: 71271 ==

== ENCOUNTER 2024-05-29 14:28 | Outpatient (AMB) | payer OTHER, SELFPAY ==
--- NOTE | 2024-05-29 14:35 | A.OFFVIS_ITS ---
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 Has been going on for about a year. Right leg only. Itchy. Patient states he has purple discoloration on his right foot. Accompanied by: Self / Same As Patient Allergies bupropion Adverse Reaction (Intermediate, Verified 05/29/24 14:38) mood changes HPI HPI CREATIVE SERVICES INTERN/HMG PCP referral for VV: Details: Jaspreet, a pleasant 59-year-old male patient, is presenting today on a referral from his PCP for varicose veins. Complaints include intermittent pain over varicosities in itchiness of the lower extremities. It has been affecting their daily activities including working, walking, and standing. It is noted more so in right leg. He does have osteoarthritis in bilateral knees and does need bilateral knee replacements in the future. He works in the [employer] business, he states he has been standing a lot on the drum. Patient denies any previous venous surgery or injections. Patient denies any history of DVT/ PE. Patient denies any history of phlebitis. Trial of compression includes - elevation They now present for vascular evaluation regarding their varicose veins. [facility] Medical History Localized osteoarthritis of right knee Opiate dependence HLD (hyperlipidemia) Tubular adenoma Arthritis DDD (degenerative disc disease), lumbar Sciatic leg pain Allergic rhinitis Nicotine dependence, cigarettes, uncomplicated Surgical History History of colonoscopy History of right inguinal hernia repair History of elbow surgery Social History Household Members: Spouse and Children Housing: Apartment Alcohol intake: current Alcohol intake frequency: a few times a month Alcohol type: beer Patient Tobacco Use Status: Current everyday Tobacco user Tobacco use type: Cigarette Cigarettes Per Day: 7 Years Smoked: (onset 14yo, 3/4-1ppd x 45yrs, now 1/2ppd - 30pyh) e-Cigarette/Vaping Use: Never Used service: No Current occupational status: employed Current occupation: [employer] Cognitive needs: No Hearing needs: No Vision needs: No Review of Systems Const Reports as per HPI and Denies weakness ENT Reports Normal hearing present and Denies dizziness Card Reports as per HPI, Denies chest pain, Denies chest pain at rest, Denies chest pain with activity, Denies dyspnea and Denies dyspnea on exertion Resp Reports as per HPI, Denies cough, Denies dyspnea and Denies dyspnea on exertion GI Reports as per HPI, Denies abdominal pain, Denies nausea and Denies vomiting Musc Denies numbness Skin/Breast Reports as per HPI, Denies erythema and Denies wounds Neuro Reports Normal hearing present, Denies dizziness, Denies numbness, Denies Sensory deficit (Neuro) and Denies weakness Psych Reports no additional complaints Endo Reports no additional complaints Physical Exam Const General: healthy appearing and no acute distress Orientation/consciousness: patient oriented x3 HEENT Head: Yes normal to inspection Ears: hearing grossly normal bilaterally Mouth: Normal oral and palatal mucosa present Resp Effort & Inspection: normal respiratory effort and able to speak in complete sentences Auscultation: clear to auscultation bilaterally Cardio Jugular venous distension: no JVD Rate: regular rate Rhythm: regular rhythm Heart sounds: S1 normal heart sound present and S2 normal heart sound present Bruits: no abdominal aortic bruits, no carotid bruits, no femoral bruits and no renal bruits Peripheral pulses: Peripheral pulses 2+ throughout GI Inspection: Yes normal to inspection Palpation (GI): No Abdominal aortic bruit present Skin General skin exam: no rashes or lesions noted Wounds: no wounds Hair: normal Neuro General: patient oriented x3 Cranial nerves: Yes Normal hearing present Cognition (Neuro): normal cognition Gait exam (Neuro): Normal gait present Motor exam (neuro): 5/5 motor strength present throughout Sensory Exam: No Sensory deficit (Neuro) Extrem Other: Right lower extremity: Multiple rope-like tortuosities is noted on the medial aspect of the leg, not painful to palpation. Slight discoloration noted around the ankles. Left lower extremity: No tortuosity noted. CEAP: C - 4 E - primary A - superficial P - reflux General: Yes normal to inspection, Yes full ROM, Yes capillary refill normal and Yes normal gait Assessment & Plan Assessment & Plan (1) Varicose veins of right lower extremity with inflammation: Code(s): I83.11 - Varicose veins of right lower extremity with inflammation Category: Medical Plan: Jaspreet is presenting today as a referral from his PCP for worsening varicose veins. In short, the patient has evidence of venous insufficiency. I have discussed the pathophysiology with the patient. In addition I have provided informational material regarding venous disease to the patient. We have discussed conservative measures including compression, elevation, and exercise. We are able to provide him with compression stockings. I have taken the liberty of ordering venous insufficiency testing with the patient. They will follow up with me after testing. The patient had an opportunity to ask questions regarding the treatment plan. All questions were answered. Imaging studies, laboratory studies and physical exam results were discussed and reviewed in detail. No major barriers to understanding were identified. The patient expressed understanding and agreement with the above treatment plan. The patient is aware they should contact our office by phone for worsening of the current condition or the appearance of new symptoms. Thank you for allowing me to participate in the vascular care of this patient. If you have any questions or concerns regarding the treatment for the above condition please do not hesitate to contact me. The office telephone contact is [phone]. This note is constructed using voice recognition software. While every effort has been made to ensure accuracy, nail professional errors may have been included. Thank you for allowing me to participate in the care of your patient. Yours sincerely, JOSE Vergara Orders: Orders US venous duplex LE BI 1 Week I83.11 - Varicose veins of right lower extremity with inflammation Coding Level of Care Code New Pt Level 4 (84491) Diagnoses Varicose veins of right lower extremity with inflammation I83.11
== END 2024-05-29 14:54 | disposition home or self-care (01) ==
PROVIDERS: PCP Physician Assistant; Visit Provider Physician Assistant Surgical
DX: I83.11 Varicose veins of right lower extremity with inflammation (principal)
CPT/HCPCS: 99204

== ENCOUNTER → 2024-05-29 14:28 | Outpatient (BNVA) | payer OTHER, SELFPAY | PROVIDERS: PCP Physician Assistant; Visit Provider Physician Assistant Surgical ==

== ENCOUNTER 2025-01-17 14:10 | Outpatient (AMB) | payer OTHER, SELFPAY ==
[2025-01-17 14:15] VITALS: BP 100/56; PULSE 75; RESP 18; TEMP 36.2; O2SAT 94; BMI 22.1
--- NOTE | 2025-01-17 14:15 | A.OFFPC_ITS ---
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 Patient has a past history significant Knee osteoarthritis and bad lateral MCP arthritis, opiate dependence, smoker, tubular adenoma of colon. Osteoarthritis: works full-time in [employer] . has been seen by orthopedic whom recommended joint replacement of his knee though has not been able to do this due to his heavy workload and inability to take time off of work. has been using ibuprofen and gabapentin 800 TID. ? .. smoker: he does understand he needs to quit smoking and has found it very difficult to do so. Has tried nicotine replacement, Wellbutrin and Chantix in the past without significant being able to quit smoking. He is willing to start the lung cancer screening program .. Lower extremity varicose veins: Has had an evaluation with vascular surgeon here in [place] who recommended ultrasounds of lower extremities. Has not had linnea figueroa done. Will reorder lower extremity ultrasound to evaluate his vasculature in his lower extremity. He does understand he needs to quit smoking. .. Opiate dependence: Substance use disorder is a significant concern, with the patient currently on Suboxone therapy, which he finds financially burdensome due to insurance issues. He is exploring options to have his primary care physician manage this treatment to reduce costs. [facility] Medical History Localized osteoarthritis of right knee Opiate dependence HLD (hyperlipidemia) Tubular adenoma Arthritis DDD (degenerative disc disease), lumbar Sciatic leg pain Allergic rhinitis Nicotine dependence, cigarettes, uncomplicated Surgical History History of colonoscopy History of right inguinal hernia repair History of elbow surgery Social History Household Members: Spouse and Children Housing: Apartment Alcohol intake: current Alcohol intake frequency: a few times a month Alcohol type: beer Patient Tobacco Use Status: Current everyday Tobacco user Tobacco use type: Cigarette Cigarettes Per Day: 7 Years Smoked: (onset 14yo, 3/4-1ppd x 45yrs, now 1/2ppd - 30pyh) Packs per year/per ci.00 e-Cigarette/Vaping Use: Never Used service: No Current occupational status: employed 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 1. Little interest or pleasure in doing things: not at all 2. Feeling down, depressed, or hopeless: not at all 3. Trouble falling or staying asleep, or sleeping too much: several days 4. Feeling tired or having little energy: several days 5. Poor appetite or overeating: not at all 6. Feeling bad about yourself - or that you are a failure or have let yourself or your family down: several days 7. Trouble concentrating on things, such as reading the newspaper or watching television: not at all 8. Moving or speaking so slowly that other people could have noticed. Or the opposite - being so fidgety or restless that you have been moving around a lot more than usual: not at all 9. Thoughts that you would be better off or of hurting yourself in some way: not at all Total score: 3 Depression Screening Interpretation: Negative Depression Screening Done: Yes 02111 - PHQ-9 Billing: Yes Source: Developed by Drs. Horacio Menard, Liliya Yoo, Kasi Ayers and colleagues, with an educational genevieve from [employer]. Thrive Questionnaire Date Thrive assessed: 01/17/25 I am a: Patient What is your living situation today?: I have a steady place to live Within the past 12 months, did the food you bought not last and you didn't have the money to get more?: Never true Within the past 12 months, did you worry whether your food would run out before you got money to buy more?: Never true Do you have trouble paying for medicines?: Yes Do you have trouble getting transportation to medical appointments?: No Do you have trouble paying your heating and electricity bill?: Yes Do you have trouble taking care of your child, family member or friend?: No Do you have trouble with day-to-day activities such as bathing, preparing meals, shopping, managing finances, etc.?: No Are you currently unemployed and looking for a job?: No Are you interested in more education?: Yes Please select the resources that you would like help with: Paying for medicine and Utilities Currently or been in a relationship where the following occur: No concerns reported THRIVE Score: 1 AUDIT C Alcohol Use Questionnaire (AUDIT-C) 1. How often do you have a drink containing alcohol?: Monthly or less 2. How many drinks containing alcohol do you have on a typical day when you are drinking?: 3 or 4 3. How often do you have six or more drinks on one occasion?: Never Total Score: 2 CELESTE-7 AMB Questionnaire CELESTE-7 Date CELESTE - 7 assessed: 01/17/25 Feeling nervous, anxious, or on edge: 1 = Several days Not being able to stop or control worryin = Several days Worrying too much about different things: 1 = Several days Trouble relaxin = More than half the days Being so restless that it is hard to sit still: 0 = Not at all Becoming easily annoyed or irritable: 0 = Not at all Feeling afraid as if something awful might happen: 0 = Not at all Total CELESTE-7 score (0-4 normal; 5-9 mild; 10-14 moderate; 15-21 severe): 5 Source: Developed by Drs. Horacio Menard, Liliya Yoo, Kasi Ayers and colleagues, with an educational genevieve from [employer]. CELESTE-7 Assessment Billing CELESTE-7 Assessment Tool: CELESTE-7 Assessment 43452 Review of Systems Const Denies headache(s) Eyes Denies loss of vision ENT Denies vertigo, Denies dizziness, Denies headache(s) and Denies sore throat Card Denies chest pain, Denies leg edema and Denies lightheadedness Resp Denies cough, Denies hemoptysis and Denies wheezing GI Denies abdominal pain, Denies melena, Denies constipation, Denies diarrhea and Denies vomiting Denies dysuria, Denies urinary frequency and Denies urinary urgency Musc Denies arthralgias, Denies joint swelling, Denies numbness and Denies tingling Neuro Denies Abnormal speech present, Denies behavioral changes, Denies vertigo, Denies dizziness, Denies headache(s), Denies loss of vision, Denies memory loss, Denies numbness and Denies tingling Psych Denies anxiety, Denies behavioral changes, Denies depression, Denies memory loss and Denies panic attacks Denys/Lymph Denies easy bleeding and Denies easy bruising Aller/Immun Denies wheezing Physical exam (Primary Care) Vital Signs: Last Vital Signs Temp 97.1 F 01/17/25 14:15 Pulse 75 01/17/25 14:15 Resp 18 01/17/25 14:15 BP 120/74 01/17/25 14:48 Pulse Ox 94 01/17/25 14:15 Oxygen Delivery Method Room Air 01/17/25 14:15 BMI result Body Mass Index 22.1 Tobacco/Smoking Status: Tobacco use Status Tobacco use date assessed 01/17/25 01/17/25 14:24 Patient Tobacco Use Status Current everyday Tobacco 01/17/25 14:24 Tobacco use type Cigarette 01/17/25 14:24 e-Cigarette/Vaping Use Never Used 01/17/25 14:24 Are you ready to quit: No Tobacco cessation counseling provided: Yes Items discussed: Nicotine replacement Relapse Prevention: discussed the importance of a supportive environment, discussed negative mood or depression after quitting, weight gain after smoking is common and discussed dietary, exercise and/or lifestyle changes Number of minutes spent counselin CPT code: 75834 - 4-10 Minutes PHQ-9: PHQ-9 Score PHQ-9: Total score 3 01/17/25 14:30 Depression Screening Interpretation: Negative Thrive Assessment: Date of Thrive Assessment Date Thrive assessed 01/17/25 01/17/25 14:24 Currently or been in a relationship where the following occur: No concerns reported Const General: healthy appearing, no acute distress, alert and awake Nutritional Appearance: well nourished Orientation/consciousness: oriented to person, oriented to place and oriented to time HENMT Ears: TM's normal bilaterally General nose exam: Normal nasal mucous membranes and turbinates present Eyes Conjunctivae: conjunctivae normal Sclerae: sclerae normal Pupils: Equal, round and reactive pupils present Neck Neck: Yes no lymphadenopathy and Yes no JVD Thyroid: Thyroid normal Carotids: no bruits Resp Effort & Inspection: normal respiratory effort and not tachypneic Auscultation: no crackles, no rales, no rhonchi and no wheezes Cardio Rate: regular rate Rhythm: regular rhythm Heart sounds: no murmurs and normal S1 and S2 GI Palpation (GI): Soft to palpation, nontender, no hepatomegaly and no splenomegaly Auscultation: normal bowel sounds Skin General skin exam: no rashes or lesions noted and dry skin Neuro General: oriented to person, oriented to place and oriented to time Cranial nerves: Yes Equal, round and reactive pupils present Speech: No Abnormal speech present Gait exam (Neuro): Normal gait present Motor exam (neuro): no tremor noted Extrem Right upper extremity: full ROM Left upper extremity: full ROM Right lower extremity: full ROM; no edema Left lower extremity: full ROM; no edema Psych Mental Status: mental status grossly normal Speech and movement: Normal speech and movement present Affect: normal affect Attitude: cooperative Thought process: Normal thought process present Coding Level of Care Code Est Pt Prev Care 40-64y(70473) Diagnoses Uncomplicated opioid dependence F11.20 Substance use status: uncomplicated Mixed hyperlipidemia E78.2 Hyperlipidemia type: mixed hyperlipidemia Nicotine dependence, cigarettes, uncomplicated F17.210 Low libido R68.82 Tubular adenoma D36.9 Additional Codes CELESTE-7 Assessment Billing - CELESTE-7 Assessment Tool: CELESTE-7 Assessment 05311 ([id number]) PHQ-9 - 41507 - PHQ-9 Billing: Yes ([id number]) Vital Signs *Quality* - CPT code: 41445 - 4-10 Minutes ([id number]) Assessment & Plan Assessment & Plan (1) Opiate dependence: Comment: (Stable on Suboxone - Followed by yvonne bartholomew [place] Rupali) Code(s): F11.20 - Opioid dependence, uncomplicated Category: Medical Qualifiers: Substance use status: uncomplicated Qualified Code(s): F11.20 - Opioid dependence, uncomplicated Plan: The patient is exploring the option of having Suboxone prescribed by the primary care physician to reduce costs and improve convenience. He promises to get urine drug screen and continues to follow up every 2-3 months for Suboxone treatment to save cost on specialist fees. (2) HLD (hyperlipidemia): Code(s): E78.5 - Hyperlipidemia, unspecified Category: Medical Qualifiers: Hyperlipidemia type: mixed hyperlipidemia Qualified Code(s): E78.2 - Mixed hyperlipidemia Plan: Has yet to get fasting labs to recheck his fasting lipid panel (3) Nicotine dependence, cigarettes, uncomplicated: Comment: (onset 14yo, 3/4-1ppd x 45yrs, now 1/2ppd - 30pyh) Code(s): F17.210 - Nicotine dependence, cigarettes, uncomplicated Category: Medical Plan: Unfortunately still smoking. Patient reports Chantix was not effective. Has upcoming appointment with lung cancer screening program (4) Low libido: Code(s): R68.82 - Decreased libido Category: Medical Plan: Reports low energy and low libido, he is interested in getting his testosterone checked (5) Tubular adenoma: Comment: (2TA/1HP - on 2020 scope - repeat 3yrs) Code(s): D36.9 - Benign neoplasm, unspecified site Category: Medical Plan: Patient has a history of tubular adenoma polyp in 2020. Needs a repeat colonoscopy Orders: Orders Drug Screen Urine 01/17/25 F11.20 - Opioid dependence, uncomplicated Lipid Panel 01/17/25 E78.2 - Mixed hyperlipidemia Complete Blood Count no Diff 01/17/25 E78.2 - Mixed hyperlipidemia Testosterone, Free/Total 01/17/25 R68.82 - Decreased libido US venous duplex LE BI 01/17/25 I83.11 - Varicose veins of right lower extremity with inflammation Comprehensive [place]. Panel Fast 01/17/25 E78.2 - Mixed hyperlipidemia Prostate Specific Antigen Scr 01/17/25 E78.2 - Mixed hyperlipidemia, Z12.5 - Encounter for screening for malignant neoplasm of prostate Referrals Gastroenterology Referral D36.9 - Benign neoplasm, unspecified site Lung Cancer Screening Referral F17.200 - Nicotine dependence, unspecified, uncomplicated, F17.210 - Nicotine dependence, cigarettes, uncomplicated Medications: Changed From buprenorphine-naloxone 8-2 mg (Suboxone) 1 strip sublingual DAILY F11.20 - Opioid dependence, uncomplicated To buprenorphine-naloxone 8-2 mg (Suboxone) 1 film sublingual DAILY 28 ea 2RF 28 days F11.20 - Opioid dependence, uncomplicated Discontinued varenicline tartrate Discontinued Reason: Doctor's Order 0.5 mg PO; Take 0.5 mg qd x 3 days, then 0.5 mg b.i.d. x4 days 7 days 11 tabs 0RF F17.200 - Nicotine dependence, unspecified, uncomplicated varenicline tartrate Discontinued Reason: Doctor's Order 1 mg PO BID 28 days 56 tabs 1RF F17.200 - Nicotine dependence, unspecified, uncomplicated
[2025-01-17 14:48] VITALS: BP 120/74
== END 2025-01-17 14:51 | disposition home or self-care (01) ==
LOC: HO.HMCH 14:11
PROVIDERS: PCP Physician Assistant; Visit Provider Physician Assistant
DX: E78.2 Mixed hyperlipidemia (principal); F11.20 Opioid dependence, uncomplicated; F17.210 Nicotine dependence, cigarettes, uncomplicated; R68.82 Decreased libido; D36.9 Benign neoplasm, unspecified site

== ENCOUNTER → 2025-01-17 14:10 | Outpatient (BNVA) | payer OTHER, SELFPAY | PROVIDERS: PCP Physician Assistant; Visit Provider Physician Assistant | DX: E78.2 Mixed hyperlipidemia (principal); M17.10 Unilateral primary osteoarthritis, unspecified knee; F11.20 Opioid dependence, uncomplicated; F17.210 Nicotine dependence, cigarettes, uncomplicated; R68.82 Decreased libido; D36.9 Benign neoplasm, unspecified site; I83.11 Varicose veins of right lower extremity with inflammation; Z86.0101 Personal history of adenomatous and serrated colon polyps | CPT/HCPCS: 96127 ==

== ENCOUNTER 2025-01-26 07:42 | Outpatient (REF) | payer OTHER, SELFPAY ==
[2025-01-26 08:25] LABS: Hematocrit 44.8 % (42.0-52.0); Hemoglobin 15.2 g/dl (14.0-18.0); Mean Corpuscular HGB Conc 33.9 g/dl (31.0-36.0); Mean Corpuscular Hemoglobin 30.8 pg (27.0-33.0); Mean Corpuscular Volume 90.7 fL (80.0-98.0); NRBC Abs Auto 0.000 X10*3/uL (0.0-0.012); NRBC Pct Auto 0.0 /100WBC (0.0-0.2); Platelet Count 261 X10*3/uL (160-400); Red Blood Count 4.94 X10*6/uL (4.60-5.80); White Blood Count 10.0 X10*3/uL (4.8-10.8)
[2025-01-26 08:49] LABS: Alanine Aminotransferase 14 U/L (0-40); Albumin Level 4.2 g/dL (3.5-5.0); Alkaline Phosphatase 104 U/L (39-117); Anion Gap 16 (12-20); Aspartate Amino Transferase 23 U/L (5-37); Blood Urea Nitrogen 13 mg/dL (9-16); Calcium 9.1 mg/dL (8.4-10.2); Carbon Dioxide 25 mmol/L (22-29); Chloride 103 mmol/L (96-108); Cholesterol 202 mg/dL (<200); Estimated Glomerular Filt Rate > 60; HDL Cholesterol 52 mg/dL (>40); Potassium 3.8 mmol/L (3.3-5.1); Sodium 140 mmol/L (135-145); Total Protein 7.8 g/dL (6.5-8.0); Triglycerides 89 mg/dL (<150)
[2025-01-26 09:08] LABS: Cannabinoid Screen Urine Not Detected (Not Detect)
[2025-02-01 15:03] LABS: Testosterone, Free 42.4 pg/mL (35.0-155.0)
== END 2025-01-26 07:43 | disposition home or self-care (01) ==
LOC: HO.LAB 07:42
PROVIDERS: PCP Physician Assistant; Visit Provider Physician Assistant
DX: E78.2 Mixed hyperlipidemia (principal); F11.20 Opioid dependence, uncomplicated; R68.82 Decreased libido; Z12.5 Encounter for screening for malignant neoplasm of prostate
CPT/HCPCS: 80053; 80061; 80307; 84153; 84402; 84403; 85027

== ENCOUNTER 2025-01-30 13:18 | Outpatient (AMB) | payer OTHER, SELFPAY ==
--- NOTE | 2025-01-30 13:22 | MHC.PC.OV ---
Vital Signs 01/30/25 13:23 Height 6 ft Weight 157 lb 4 oz BMI 21.3 BP 110/60 Blood Pressure Location Lt brachial Position Sitting Pulse 86 Pulse Source Pulse Oximeter Temp 97.3 F Temp Source Temporal Artery Scan Pulse Oximetry (%) 94 Oxygen Delivery Method Room Air Intake Visit Reasons: annual exam Intake Note: Patient is here today for a physical. Ict Quality Assurance Engineer Required: No Patient Services Specialist: Not Required per policy Accompanied by: Self / Same As Patient Allergies bupropion Adverse Reaction (Intermediate, Verified 01/30/25 13:29) mood changes Medication List - Last Reconciled 01/30/25 by Alli Nunez PA-C buprenorphine-naloxone 8-2 mg (Suboxone) 1 film sublingual DAILY 28 days gabapentin 800 mg PO QID 30 days ibuprofen 800 mg PO Q8H 30 days Tobacco use date assessed: 01/30/25 Dental Screening Dental Screen Date: 01/17/25 HPI annual exam HPI Details Patient is a 59 year male here today for an annual physical.? Patient has a past history significant Knee osteoarthritis and bad lateral MCP arthritis, opiate dependence, smoker, tubular adenoma of colon. Osteoarthritis: works full-time in [employer] . has been seen by orthopedic whom recommended joint replacement of his knee though has not been able to do this due to his heavy workload and inability to take time off of work. has been using ibuprofen and gabapentin 800 TID. ? .. smoker: he does understand he needs to quit smoking and has found it very difficult to do so. Has tried nicotine replacement, Wellbutrin and Chantix in the past without significant being able to quit smoking. Patient is waiting a cough in the lung cancer screening program to be evaluated .. Lower extremity varicose veins: Has had an evaluation with vascular surgeon here in [place] who recommended ultrasounds of lower extremities. Has not had imaging done. Will reorder lower extremity ultrasound to evaluate his vasculature in his lower extremity. He does understand he needs to quit smoking. .. Opiate dependence: Substance use disorder is a significant concern, with the patient currently on Suboxone therapy, which he finds financially burdensome due to insurance issues. He is exploring options to have his primary care physician manage this treatment to reduce costs. Recent urine drug screen did show positive for amphetamines. He reports he recently started using a decongestant due to allergies which may contribute to a false-positive. Colorectal cancer screening: Is awaiting be scheduled for colonoscopy Vaccines: Up-to-date with pneumonia vaccine, tetanus vaccine, considering flu and shingles vaccines. [facility] Medical History Localized osteoarthritis of right knee Opiate dependence HLD (hyperlipidemia) Tubular adenoma Arthritis DDD (degenerative disc disease), lumbar Sciatic leg pain Allergic rhinitis Nicotine dependence, cigarettes, uncomplicated Surgical History History of colonoscopy History of right inguinal hernia repair History of elbow surgery Social History Household Members: Spouse and Children Housing: Apartment Alcohol intake: current Alcohol intake frequency: a few times a month Alcohol type: beer Patient Tobacco Use Status: Current everyday Tobacco user Tobacco use type: Cigarette Cigarette Packs Per Day: 0.5 Cigarettes Per Day: 10 Years Smoked: (onset 14yo, 3/4-1ppd x 45yrs, now 1/2ppd - 30pyh) e-Cigarette/Vaping Use: Never Used Second Hand Smoke Exposure: Yes service: No Current occupational status: employed 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 Cognitive needs: No Hearing needs: No Vision needs: No Questionnaire Thrive Questionnaire Date Thrive assessed: 01/14/25 I am a: Patient What is your living situation today?: I have a steady place to live Within the past 12 months, did the food you bought not last and you didn't have the money to get more?: Sometimes True Within the past 12 months, did you worry whether your food would run out before you got money to buy more?: I choose not to answer this question Do you have trouble paying for medicines?: Yes Do you have trouble getting transportation to medical appointments?: No Do you have trouble paying your heating and electricity bill?: Yes Do you have trouble taking care of your child, family member or friend?: No Do you have trouble with day-to-day activities such as bathing, preparing meals, shopping, managing finances, etc.?: No Are you currently unemployed and looking for a job?: No Are you interested in more education?: Yes Currently or been in a relationship where the following occur: No concerns reported THRIVE Score: 2 CELESTE-7 AMB Questionnaire CELESTE-7 Date CELESTE - 7 assessed: 01/17/25 Source: Developed by Drs. Horacio Menard, Liliya Yoo, Kasi Ayers and colleagues, with an educational genevieve from [employer].. Review of Systems Const Denies body aches, Denies chills, Denies excessive sweating, Denies fatigue, Denies fever(s) and Denies headache(s) Eyes Denies blurry vision ENT Denies dysphagia, Denies vertigo, Denies dizziness, Denies headache(s), Denies hearing loss and Denies tinnitus Card Denies chest pain, Denies chest pain with activity, Denies syncope, Denies irregular heart rhythm and Denies dyspnea Resp Denies chest congestion, Denies cough, Denies hemoptysis, Denies dyspnea and Denies wheezing GI Denies abdominal pain, Denies melena, Denies hematochezia, Denies coffee ground emesis, Denies dysphagia, Denies diarrhea, Denies nausea and Denies vomiting Denies difficulty urinating, Denies dysuria, Denies urinary frequency, Denies urinary hesitancy and Denies urinary urgency Musc Denies arthralgias, Denies limited range of motion, Denies muscle cramps and Denies muscle weakness Skin/Breast Denies rash and Denies skin ulcer Neuro Denies Abnormal speech present, Denies confusion, Denies vertigo, Denies dizziness, Denies syncope, Denies headache(s), Denies memory loss and Denies seizure-like activity Psych Denies anxiety, Denies confusion, Denies depression, Denies memory loss, Denies panic attacks and Denies paranoia Endo Denies excessive sweating, Denies fatigue, Denies flushing, Denies polydipsia and Denies polyuria Aller/Immun Denies wheezing Physical exam (Primary Care) Vital Signs: Last Vital Signs Temp 97.3 F 01/30/25 13:23 Pulse 86 01/30/25 13:23 BP 110/60 01/30/25 13:23 Pulse Ox 94 01/30/25 13:23 Oxygen Delivery Method Room Air 01/30/25 13:23 BMI result Body Mass Index 21.3 Tobacco/Smoking Status: Tobacco use Status Tobacco use date assessed 01/30/25 01/30/25 13:27 Patient Tobacco Use Status Current everyday Tobacco 01/30/25 13:27 Tobacco use type Cigarette 01/30/25 13:27 e-Cigarette/Vaping Use Never Used 01/30/25 13:27 Thrive Assessment: Date of Thrive Assessment Date Thrive assessed 01/14/25 01/30/25 13:27 Currently or been in a relationship where the following occur: No concerns reported Const General: cooperative, comfortable, no acute distress, alert and awake; No confusion Orientation/consciousness: oriented to person, oriented to place, patient oriented x3 and No confusion HENMT Head: Yes normocephalic Ears: external ears normal and TM's normal bilaterally Face and sinus: No sinus tenderness Mouth: Normal oral and palatal mucosa present and tongue normal Teeth and gingiva: dentition normal and gingiva normal Throat: Yes posterior oropharynx normal, Yes tonsils normal and Yes uvula midline Eyes Conjunctivae: conjunctivae normal Sclerae: sclerae normal Pupils: Equal, round and reactive pupils present EOM: EOMs intact bilaterally Direct Ophthalmoscopy: No no photophobia Neck Neck: Yes no lymphadenopathy, No tender and Yes no JVD Thyroid: Thyroid normal Carotids: no bruits Chest Chest palpation & inspection: no tenderness Resp Effort & Inspection: normal respiratory effort, no audible wheezes, not labored and no stridor Auscultation: no crackles, no rales, no rhonchi and no wheezes Cardio Jugular venous distension: no JVD Rate: regular rate, not bradycardic and not tachycardic Rhythm: regular rhythm Bruits: no carotid bruits Peripheral pulses: Peripheral pulses 2+ throughout GI Inspection: Yes normal to inspection, No abdominal wall ecchymosis and No visible herniation Palpation (GI): Soft to palpation, nontender, no guarding, not rigid and No hepatosplenomegaly present Auscultation: normoactive bowel sounds General: Yes no CVA tenderness Back/Spine/Pelvis Back: no CVA tenderness and No back tenderness Cervical Spine: cervical ROM normal Thoracic/Lumbar Spine: thoracic and lumbar spine normal to inspection, straight leg raise negative bilaterally, No thoraco-lumbar ROM limited and No lumbar spinal tenderness Skin Lesions: no lesions Rashes: no rashes Wounds: no wounds Neuro General: oriented to person, oriented to place, patient oriented x3, CN's II-XI intact bilaterally and No confusion Cranial nerves: Yes Equal, round and reactive pupils present and Yes Normal accommodation reflex present Cognition (Neuro): normal cognition Speech: No Abnormal speech present Gait exam (Neuro): Normal gait present Motor exam (neuro): 5/5 motor strength present throughout Extrem Right upper extremity: full ROM; no cyanosis Left upper extremity: full ROM; no cyanosis Right lower extremity: no edema Left lower extremity: no edema Psych Appearance: grossly normal Mental Status: mental status grossly normal Affect: normal affect Attitude: cooperative Thought process: Normal thought process present Coding Level of Care Code Est Pt Prev Care 40-64y(19045) Diagnoses Annual physical exam Z00.00 Uncomplicated opioid dependence F11.20 Substance use status: uncomplicated Mixed hyperlipidemia E78.2 Hyperlipidemia type: mixed hyperlipidemia Nicotine dependence, cigarettes, uncomplicated F17.210 Tubular adenoma D36.9 Assessment & Plan Assessment & Plan (1) Annual physical exam: Code(s): Z00.00 - Encounter for general adult medical examination without abnormal findings Category: Medical Plan: As per HPI (2) Opiate dependence: Comment: (Stable on Suboxone - Followed by yvonne bartholomew [facility]) Code(s): F11.20 - Opioid dependence, uncomplicated Category: Medical Qualifiers: Substance use status: uncomplicated Qualified Code(s): F11.20 - Opioid dependence, uncomplicated Plan: Has been sober from street illicit opiates for many years now. Now would like PCP to supply Suboxone due to financial reasons as specialist fee are financially taxing. Recent drug screen showing positive for amphetamines, he was taking Claritin D which may have caused a false positive for amphetamine. He is willing to do the urine drug screen again (3) HLD (hyperlipidemia): Code(s): E78.5 - Hyperlipidemia, unspecified Category: Medical Qualifiers: Hyperlipidemia type: mixed hyperlipidemia Qualified Code(s): E78.2 - Mixed hyperlipidemia Plan: Has yet to get fasting labs to recheck his fasting lipid panel (4) Nicotine dependence, cigarettes, uncomplicated: Comment: (onset 14yo, 3/4-1ppd x 45yrs, now 1/2ppd - 30pyh) Code(s): F17.210 - Nicotine dependence, cigarettes, uncomplicated Category: Medical Plan: Unfortunately still smoking. Patient reports Chantix was not effective. Has upcoming appointment with lung cancer screening program (5) Tubular adenoma: Comment: (2TA/1HP - on 2020 scope - repeat 3yrs) Code(s): D36.9 - Benign neoplasm, unspecified site Category: Medical Plan: Patient has a history of tubular adenoma polyp in 2020. Needs a repeat colonoscopy Orders: Orders Drug Screen Urine Today F11.20 - Opioid dependence, uncomplicated
[2025-01-30 13:23] VITALS: BP 110/60; PULSE 86; TEMP 36.3; O2SAT 94; BMI 21.3
== END 2025-01-30 13:45 | disposition home or self-care (01) ==
LOC: HO.HMCH 13:20
PROVIDERS: PCP Physician Assistant; Visit Provider Physician Assistant
DX: Z00.00 Encounter for general adult medical examination without abnormal findings (principal); F11.20 Opioid dependence, uncomplicated; E78.2 Mixed hyperlipidemia; F17.210 Nicotine dependence, cigarettes, uncomplicated; D36.9 Benign neoplasm, unspecified site

== ENCOUNTER 2025-02-07 14:10 | Outpatient (REF) | payer OTHER, SELFPAY ==
[2025-02-07 14:46] LABS: Cannabinoid Screen Urine Not Detected (Not Detect)
== END 2025-02-07 14:11 | disposition home or self-care (01) ==
LOC: HO.LAB 14:10
PROVIDERS: PCP Physician Assistant; Visit Provider Physician Assistant
DX: F11.20 Opioid dependence, uncomplicated (principal)
CPT/HCPCS: 80307

== ENCOUNTER 2025-03-13 12:09 | Outpatient (AMB) | payer OTHER, SELFPAY ==
--- NOTE | 2025-03-13 12:16 | MHC.OFFVIS ---
Vital Signs 03/13/25 12:17 Height 6 ft Weight 163 lb BMI 22.1 BP 126/86 Blood Pressure Location Rt brachial Position Sitting Pulse 88 Pulse Source Pulse Oximeter Pulse Oximetry (%) 93 Oxygen Delivery Method Room Air Intake Visit Reasons: 3/5 YRS cOLO RECALL Intake Note: Patient new consult for 3/5 yrs Colonoscopy recall./Ami wooten torsten 10/2020 and last Colonoscopy was 11/07/[address] Flores Patient cc: Pt denies any GI sx or concerns at this time. 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 Last visit with JOSE Schroeder 11/26/2020 for follow up after screening colonoscopy. Jaspreet's last colonoscopy was in 2020, which revealed two precancerous colon polyps, one benign polyp, diverticulosis, and small hemorrhoids. The patient denies current gastrointestinal symptoms, including abdominal pain, constipation, diarrhea, nausea, vomiting, rectal bleeding, heartburn, or difficulty swallowing. Bowel movements are regular, occurring once daily without difficulty. Appetite reported as good. Stability since last colonoscopy and absence of anemia or abnormal kidney/liver function on recent blood work noted. There was a recent, self-limited febrile illness with cough approximately one week ago, but these symptoms have resolved fully. No relevant comorbidities currently influencing GI status, aside from ongoing pharmacologic management (Suboxone, gabapentin, ibuprofen); none of these have been associated with GI side effects as per patient report. Social hx: -ETOH use 1x/month -History of heroin and pill use (intranasal). In remission >3 years, maintained on Suboxone, denies recreational drug use -current smoker 1/2 ppd - family hx as below -denies personal hx of CA -denies significant cardiopulmonary history -tolerated anesthesia in the past difficulty. [facility] Medical History (Updated 03/13/25 @ 12:58 by Delfina Mane CNP) Colon cancer screening Localized osteoarthritis of right knee Opiate dependence HLD (hyperlipidemia) Tubular adenoma Arthritis DDD (degenerative disc disease), lumbar Sciatic leg pain Allergic rhinitis Nicotine dependence, cigarettes, uncomplicated Surgical History History of colonoscopy History of right inguinal hernia repair History of elbow surgery Social History Household Members: Spouse and Children Housing: Apartment Alcohol intake: current Alcohol intake frequency: a few times a month Alcohol type: beer Patient Tobacco Use Status: Current everyday Tobacco user Tobacco use type: Cigarette Cigarette Packs Per Day: 0.5 Cigarettes Per Day: 10 Years Smoked: (onset 14yo, 3/4-1ppd x 45yrs, now 1/2ppd - 30pyh) e-Cigarette/Vaping Use: Never Used Second Hand Smoke Exposure: Yes service: No Current occupational status: employed 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 Cognitive needs: No Hearing needs: No Vision needs: No Review of Systems Const Reports as per HPI ENT Reports as per HPI Card Reports as per HPI Resp Reports as per HPI GI Reports as per HPI Reports as per HPI Physical Exam Vital Signs: Last Vital Signs Pulse 88 03/13/25 12:17 BP 126/86 03/13/25 12:17 Pulse Ox 93 03/13/25 12:17 Oxygen Delivery Method Room Air 03/13/25 12:17 BMI result Body Mass Index 22.1 Const General: healthy appearing, no acute distress and well developed Nutritional Appearance: average body habitus Orientation/consciousness: patient oriented x3 HEENT Head: Yes normal to inspection, Yes normocephalic and Yes atraumatic Face and sinus: Yes normal facial exam Eyes General: appearance normal, both eyes and all related structures Neck Neck: Yes normal visual inspection Resp Effort & Inspection: normal respiratory effort, able to speak in complete sentences, no tracheal deviation and symmetric chest movement Cardio Jugular venous distension: no JVD Rate: regular rate Rhythm: regular rhythm Heart sounds: S1 normal heart sound present, S2 normal heart sound present, no gallops and no murmurs Neuro General: patient oriented x3 Gait exam (Neuro): Normal gait present Psych Appearance: grossly normal Mental Status: mental status grossly normal Speech and movement: Normal speech and movement present Affect: normal affect Attitude: cooperative Thought process: Normal thought process present Thought content: Normal thought content present Insight: Good insight present (Psych) Judgement: Good judgement present (Psych) Results Reviewed Results Reviewed: Operative Note Date of Service: 11/07/20 Narrative: Pre-op diagnosis: Colon cancer screening Post-op diagnosis: other (Colon polyps, diverticulosis, hemorrhoids) Procedure: COLONOSCOPY TILL CECUM WITH BIOPSIES AND SNARE POLYPECTOMY Consent: Indications for the procedure and potential complications of bleeding, perforation, reaction to medications and missed diagnosis were discussed with the patient and informed consent was obtained. Instrument: Olympus CF H 190 L variable stiffness adult colonoscope Monitoring: Vital signs and clinical assessment, intermittent blood pressure monitoring, continuous EKG monitoring, Pulse oximetry and Carbon Dioxide monitoring were done throughout the procedure. Colon withdrawl time was 21 minutes. Procedure: The patient was placed in the left lateral decubitis position and pre-procedure medications were administered. After a digital rectal examination of the ano-rectum, the video colonoscope was inserted into the rectum and advanced through the colon to the cecum. The colonoscope was slowly withdrawn in a retrograde panoramic fashion and the colon mucosa was carefully examined including a retroflexed view of the rectum. Findings and interventions are described below. Procedure Difficulty: LLQ pressure applied to intubate the cecum Findings: Terminal Ileum: Not evaluated Cecum: Normal Ascending Colon: Two 8-10 mm sessile polyps in the distal AC removed with a cold snare. Transverse Colon: Normal Descending Colon: Moderate diverticulosis Sigmoid Colon: Severe diverticulosis with luminal narrowing and a sharp turn at 20 cms Rectum: Few 5-7 mm diminutive appearing polyps - one was removed with the cold biopsy Ano-rectum: Small internal hemorrhoids Colon preparation: Good after copious irrigation and fair in some parts of the colon Impression and Post Procedure Diagnosis: Colonoscopy Findings: Three small to medium sized polyps removed Moderate to severe diverticulosis seen in the left colon Small hemorrhoids on retroflexed exam. Plan: Await pathology results Patient has an appointment on 11/26/20 in the GI [facility] with JOSE Calderon . Repeat Colonoscopy interval based on path results - in 3-5 years if polyps are adenomatous and 10 years if polyps are hyperplastic. Above findings were reviewed with the patient and colon polyps and diverticulosis handouts were given in the discharge area Surgeon: Yannick Flores MD PATHOLOGY: Received: 11/07/20 Diagnosis A. Colon, ascending, polypectomies: Tubular adenomas; no high grade dysplasia or carcinoma seen. B. Rectum, polypectomy: Hyperplastic mucosal polyp. Clinical History Pre-Op Dx: Screening Post-Op Dx: Colon polyps Assessment & Plan Assessment & Plan (1) Tubular adenoma: Comment: 11/07/20 colonoscopy complete with good to fair prep after copious gxjesiaavr-4-2 mm HP ( Rectum), Two 8-10 mm TA (ascending), Moderate to severe diverticulosis, small hemorrhoid. Recommendations for repeat in 3 years Code(s): D36.9 - Benign neoplasm, unspecified site Category: Medical Plan: Overdue for polyp surveillance colonoscopy. No alarm features. Medications: -prescriptions for laxative tablets and PEG sent to pharmacy; instructions on clear liquid diet given. - understands to hold NSAIDs 7 days prior to procedure. Patient educated on scheduling process, procedure preparation, including avoiding certain foods and ensuring clear liquid intake Advised on necessity for ride post-procedure due to sedation. (2) Diverticulosis large intestine w/o perforation or abscess w/o bleeding: Code(s): K57.30 - Diverticulosis of large intestine without perforation or abscess without bleeding Category: Medical Plan: Diagnosed previously but asymptomatic; routine surveillance and review at colonoscopy. Additional Testing: Reassessment at colonoscopy. Medication Management: None required at present. Lifestyle Recommendations: Maintain high-fiber diet post-procedure, avoid straining; monitoring for new GI symptoms. Follow-Up: As above; earlier if develop rectal bleeding, abd pain, or other concerning symptoms. Plan Follow-up after colonoscopy or sooner as needed Time: I spent a total of 20 minutes on the date of encounter which includes: Preparing to see the patient (reviewed previous documentation, test results and medical history) Performing a medically appropriate exam and/or evaluation Ordering medications, tests, and procedures Documenting clinical information in the health record Orders: Referrals GI Procedure Notification D36.9 - Benign neoplasm, unspecified site, Z12.11 - Encounter for screening for malignant neoplasm of colon Medications: New simethicone (Gas Relief (simethicone)) per colonoscopy prep instructions 125 mg PO ONCE 4 caps 0RF abdominal distention peg 3350-electrolytes [id number] -5.86 gram until fecal effluent is clear 240 mL PO ONCE 4,000 mL 0RF bisacodyl Take per colonoscopy instructions 5 mg PO ONCE 4 tabs 0RF Coding Level of Care Code New Pt New Pt Level 2 (47044) Patient Type New Diagnoses Tubular adenoma D36.9 Diverticulosis large intestine w/o perforation or abscess w/o bleeding K57.30
[2025-03-13 12:17] VITALS: BP 126/86; PULSE 88; O2SAT 93; BMI 22.1
== END 2025-03-13 12:49 | disposition home or self-care (01) ==
LOC: HO.HGI 12:10
PROVIDERS: PCP Physician Assistant; Visit Provider Nurse Practitioner Family
DX: D36.9 Benign neoplasm, unspecified site (principal); K57.30 Diverticulosis of large intestine without perforation or abscess without bleeding
CPT/HCPCS: 99202

== ENCOUNTER 2025-04-11 08:16 | Outpatient (REF) | payer OTHER, SELFPAY ==
--- NOTE | ~2025-04-11 | US_ITS ---
EXAMINATION: US LOWER EXTREMITY VENOUS (REFLUX EXAM), BILATERAL CLINICAL INFORMATION: I 83.11 COMPARISON: None. TECHNIQUE: Color flow triplex imaging and compression Doppler was performed to evaluate both the deep and the superficial systems bilaterally. To evaluate the superficial system, the examination was performed in the upright position. Color-flow Doppler ultrasound and compression ultrasound were utilized. In addition, maneuvers were utilized to demonstrate reflux. FINDINGS: 1. DEEP VENOUS ULTRASOUND OF THE RIGHT LOWER EXTREMITY: Common Femoral Vein: Compressible, normal respiratory variation and augmented flow. Femoral Vein: Compressible, normal color flow and augmentation. Popliteal Vein: Compressible, normal augmentation. Deep Reflux: There is no evidence of reflux in the deep system in either the common femoral vein, superficial femoral or the popliteal vein. There is a complex, 5 cm lobulated anechoic abnormality in the popliteal fossa with thickened wall and questionable nodular components. No flow on color Doppler interrogation. 2. SUPERFICIAL ULTRASOUND WITH DOPPLER OF RIGHT LOWER EXTREMITY: GREAT SAPHENOUS VEIN: Saphenofemoral Junction: 0.7 cm; Reflux: 0 ms Proximal Thigh: 0.8 cm; Reflux: 2380 ms Mid Thigh: 0.7 cm; Reflux: 2564 ms Distal Thigh: 1.0 cm; Reflux: 2620 ms At Knee: 0.6 cm; Reflux: 2248 ms Proximal Calf: 0.3 cm; Reflux: 0 ms Mid Calf: 0.2 cm; Reflux: 2380 ms Distal Calf: 0.4 cm; Reflux: 1444 ms DUPLICATED MEDIAL GREAT SAPHENOUS VEIN: Diameter: 0.3 cm. Reflux: NA DUPLICATED LATERAL GREAT SAPHENOUS VEIN: Diameter: None imaged Reflux: NA SMALL SAPHENOUS VEIN: Saphenopopliteal Junction: 0.4 cm; Reflux: 0 ms Proximal: 0.1 cm; Reflux: 0 ms Distal: 0.1 cm; Reflux: 0 ms VEIN OF GIACOMINI: Size: NA Reflux: NA PERFORATORS: Location: Proximal to mild calf. Distal thigh Size: 0.1-0.3 cm. Reflux: NA VARICOSITIES: Location: Distal thigh and proximal calf. Size: 0.3-0.8 cm. Reflux: 1648 ms in the proximal calf. 3. DEEP VENOUS ULTRASOUND OF THE LEFT LOWER EXTREMITY: Common Femoral Vein: Compressible, normal respiratory variation and augmented flow. Femoral Vein: Compressible, normal color flow and augmentation. Popliteal Vein: Compressible, normal augmentation. Deep Reflux: 2912 ms in the popliteal vein. There is a 3 cm lobulated anechoic abnormality with thickening wall and no flow on color Doppler interrogation. There is 8 x 4 x 3 cm isoechoic soft tissue lesion beneath the skin at the proximal to mid thigh. There is no flow on color Doppler interrogation. 4. SUPERFICIAL ULTRASOUND WITH DOPPLER OF LEFT LOWER EXTREMITY: GREAT SAPHENOUS VEIN: Saphenofemoral Junction: 0.6 cm; Reflux: 0 ms Proximal Thigh: 0.4 cm; Reflux: 0 ms Mid Thigh: 0.2 cm; Reflux: 0 ms Distal Thigh: 0.2 cm; Reflux: 0 ms At Knee: 0.3 cm; Reflux: 0 ms Proximal Calf: 0.2 cm; Reflux: 0 ms Mid Calf: 0.2 cm; Reflux: 0 ms Distal Calf: 0.3 cm; Reflux: 896 ms DUPLICATED MEDIAL GREAT SAPHENOUS VEIN: Diameter: None imaged Reflux: NA DUPLICATED LATERAL GREAT SAPHENOUS VEIN: Diameter: 0.4 cm. Reflux: NA SMALL SAPHENOUS VEIN: Saphenopopliteal Junction: 0.1 cm; Reflux: 0 ms Proximal: 0.1 cm; Reflux: 0 ms Distal: 0.3 cm; Reflux: 0 ms VEIN OF GIACOMINI: Size: 0.3 cm. Reflux: NA PERFORATORS: Location: Mid to distal thigh. Size: 0.2 and 0.1 cm respectively. Reflux: NA VARICOSITIES: Location: None Imaged Size: NA Reflux: NA US/US venous duplex LE BI IMPRESSION: Right: Venous insufficiency, great saphenous vein from the proximal thigh to the ankle. Varices in the proximal calf with reflux. Perforators without reflux. 5 cm complex popliteal cyst. Left: Venous insufficiency, great saphenous vein at the ankle. Venous reflux in the popliteal vein. Perforators without reflux. 3 cm popliteal cyst. 8 cm soft tissue lesion/mass beneath the skin in the proximal to mid left side. Electronically signed by: Fili Roman MD 04/11/2025 11:52 AM LE
== END 2025-04-11 08:17 | disposition home or self-care (01) ==
LOC: HO.US 08:16
PROVIDERS: PCP Physician Assistant; Visit Provider Physician Assistant
DX: I83.11 Varicose veins of right lower extremity with inflammation (principal)
CPT/HCPCS: 93970

== ENCOUNTER → 2025-04-11 08:18 | Outpatient (BNV) | payer OTHER, SELFPAY | PROVIDERS: PCP Physician Assistant; Visit Provider Radiology Diagnostic Radiology | DX: I83.11 Varicose veins of right lower extremity with inflammation (principal); I83.12 Varicose veins of left lower extremity with inflammation; M71.21 Synovial cyst of popliteal space [Baker], right knee; M71.22 Synovial cyst of popliteal space [Baker], left knee | CPT/HCPCS: 93970 ==

== ENCOUNTER 2025-05-06 14:04 | Outpatient (AMB) | payer OTHER, SELFPAY ==
[2025-05-06 14:26] VITALS: BP 120/76; PULSE 91; TEMP 36.2; O2SAT 96; BMI 22.2
--- NOTE | 2025-05-06 14:26 | A.OFFPC_ITS ---
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 Required: No Accompanied by: Self / Same As Patient Allergies bupropion Adverse Reaction (Intermediate, Verified 05/06/25 14:53) mood changes Medication List - Last Reconciled 05/06/25 by Alli Nunez PA-C buprenorphine-naloxone 8-2 mg (Suboxone) 1 film sublingual DAILY 28 days gabapentin 800 mg PO QID 30 days ibuprofen 800 mg PO Q8H 30 days Tobacco use date assessed: 05/06/25 Dental Screening Dental Screen Date: 05/06/25 Did you have a dental visit in the last 12 months?: No Did you have a dental problem in the last 6 months where you did not have access to dental care?: No HPI 3 months HPI Details Patient is a 60-year-old male here today for a follow-up visit.? Patient has a past history significant Knee osteoarthritis and bad lateral MCP arthritis, opiate dependence, smoker, tubular adenoma of colon. Left leg mass: The patient underwent an ultrasound of his leg last month which revealed venous insufficiency and an 8 cm soft tissue mass on the proximal mid-left side. He reports that his legs hurt more than they used to. Osteoarthritis: works full-time in [employer] . has been seen by orthopedic whom recommended joint replacement of his knee though has not been able to do this due to his heavy workload and inability to take time off of work. has been using ibuprofen and gabapentin 800 TID. ? .. smoker: he does understand he needs to quit smoking and has found it very difficult to do so. Has tried nicotine replacement, Wellbutrin and Chantix in the past without significant being able to quit smoking. Patient is waiting a cough in the lung cancer screening program to be evaluated .. Lower extremity varicose veins: He has recently got ultrasound of lower extremities to did show venous insufficiency there was an noted a mm left leg soft tissue mass which will get dedicated ultrasound of.. He does understand he needs to quit smoking. .. Opiate dependence: Substance use disorder is a significant concern, with the patient currently on Suboxone therapy and has been managing well. He denies any relapses. Most recent drug screening appropriate. Laboratory Tests 01/26/25 01/26/25 02/07/25 07:51 07:57 14:14 RBC 4.94 Creatinine 0.69 Cholesterol 202 H LDL Cholesterol, C alc 133 H PSA Screen 0.49 Ur Buprenorphine S crn Positive H Positive H Ur Amphetamines Sc reen POSITIVE H Not Detected PFSH Medical History Colon cancer screening Localized osteoarthritis of right knee Opiate dependence HLD (hyperlipidemia) Tubular adenoma Arthritis DDD (degenerative disc disease), lumbar Sciatic leg pain Allergic rhinitis Nicotine dependence, cigarettes, uncomplicated Surgical History History of colonoscopy History of right inguinal hernia repair History of elbow surgery Social History Household Members: Spouse and Children Housing: Apartment Alcohol intake: current Alcohol intake frequency: a few times a month Alcohol type: beer Patient Tobacco Use Status: Current everyday Tobacco user Tobacco use type: Cigarette Cigarette Packs Per Day: 0.5 Cigarettes Per Day: 10 Years Smoked: (onset 14yo, 3/4-1ppd x 45yrs, now 1/2ppd - 30pyh) e-Cigarette/Vaping Use: Currently Using Second Hand Smoke Exposure: Yes service: No Current occupational status: employed 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 Cognitive needs: No Hearing needs: No Vision needs: No Questionnaire Thrive Questionnaire Date Thrive assessed: 01/14/25 I am a: Patient What is your living situation today?: I have a steady place to live Within the past 12 months, did the food you bought not last and you didn't have the money to get more?: Sometimes True Within the past 12 months, did you worry whether your food would run out before you got money to buy more?: I choose not to answer this question Do you have trouble paying for medicines?: Yes Do you have trouble getting transportation to medical appointments?: No Do you have trouble paying your heating and electricity bill?: Yes Do you have trouble taking care of your child, family member or friend?: No Do you have trouble with day-to-day activities such as bathing, preparing meals, shopping, managing finances, etc.?: No Are you currently unemployed and looking for a job?: No Are you interested in more education?: Yes Currently or been in a relationship where the following occur: No concerns reported THRIVE Score: 2 CELESTE-7 AMB Questionnaire CELESTE-7 Date CELESTE - 7 assessed: 01/17/25 Source: Developed by Drs. Horacio Menard, Liliya Yoo, Kasi Ayers and colleagues, with an educational genevieve from [employer]. Review of Systems Const Denies headache(s) Eyes Denies loss of vision ENT Denies vertigo, Denies dizziness, Denies headache(s) and Denies sore throat Card Denies chest pain, Denies leg edema and Denies lightheadedness Resp Denies cough, Denies hemoptysis and Denies wheezing GI Denies abdominal pain, Denies melena, Denies constipation, Denies diarrhea and Denies vomiting Denies dysuria, Denies urinary frequency and Denies urinary urgency Musc Denies arthralgias, Denies joint swelling, Denies numbness and Denies tingling Neuro Denies Abnormal speech present, Denies behavioral changes, Denies vertigo, Denies dizziness, Denies headache(s), Denies loss of vision, Denies memory loss, Denies numbness and Denies tingling Psych Denies anxiety, Denies behavioral changes, Denies depression, Denies memory loss and Denies panic attacks Denys/Lymph Denies easy bleeding and Denies easy bruising Aller/Immun Denies wheezing Physical exam (Primary Care) Vital Signs: Last Vital Signs Temp 97.1 F 05/06/25 14:26 Pulse 91 05/06/25 14:26 BP 120/76 05/06/25 14:26 Pulse Ox 96 05/06/25 14:26 Oxygen Delivery Method Room Air 05/06/25 14:26 BMI result Body Mass Index 22.2 Tobacco/Smoking Status: Tobacco use Status Tobacco use date assessed 05/06/25 05/06/25 14:34 Patient Tobacco Use Status Current everyday Tobacco 05/06/25 14:34 Tobacco use type Cigarette 05/06/25 14:34 e-Cigarette/Vaping Use Currently Using 05/06/25 14:34 Are you ready to quit: Yes Tobacco cessation counseling provided: Yes Items discussed: Nicotine replacement Relapse Prevention: discussed the importance of a supportive environment, discussed negative mood or depression after quitting, weight gain after smoking is common and discussed dietary, exercise and/or lifestyle changes Number of minutes spent counselin CPT code: 56014 - 4-10 Minutes Thrive Assessment: Date of Thrive Assessment Date Thrive assessed 01/14/25 05/06/25 14:34 Currently or been in a relationship where the following occur: No concerns reported Const General: healthy appearing, no acute distress, alert and awake Nutritional Appearance: well nourished Orientation/consciousness: oriented to person, oriented to place and oriented to time HENMT Ears: TM's normal bilaterally General nose exam: Normal nasal mucous membranes and turbinates present Eyes Conjunctivae: conjunctivae normal Sclerae: sclerae normal Pupils: Equal, round and reactive pupils present Neck Neck: Yes no lymphadenopathy and Yes no JVD Thyroid: Thyroid normal Carotids: no bruits Resp Effort & Inspection: normal respiratory effort and not tachypneic Auscultation: no crackles, no rales, no rhonchi and no wheezes Cardio Rate: regular rate Rhythm: regular rhythm Heart sounds: no murmurs and normal S1 and S2 GI Palpation (GI): Soft to palpation, nontender, no hepatomegaly and no splenom egaly Auscultation: normal bowel sounds Skin General skin exam: no rashes or lesions noted and dry skin Neuro General: oriented to person, oriented to place and oriented to time Cranial nerves: Yes Equal, round and reactive pupils present Speech: No Abnormal speech present Gait exam (Neuro): Normal gait present Motor exam (neuro): no tremor noted Extrem Right upper extremity: full ROM Left upper extremity: full ROM Right lower extremity: full ROM; no edema Left lower extremity: full ROM; no edema Psych Mental Status: mental status grossly normal Speech and movement: Normal speech and movement present Affect: normal affect Attitude: cooperative Thought process: Normal thought process present Coding Level of Care Code Est Pt Level 4 (42700) Diagnoses Uncomplicated opioid dependence F11.20 Substance use status: uncomplicated Mixed hyperlipidemia E78.2 Hyperlipidemia type: mixed hyperlipidemia Nicotine dependence, cigarettes, uncomplicated F17.210 Tubular adenoma D36.9 Acute bronchitis due to other specified organisms J20.8 Bronchitis organism: other organism Mass of left lower leg R22.42 Additional Codes Vital Signs *Quality* - CPT code: 03967 - 4-10 Minutes ([id number]) Assessment & Plan Assessment & Plan (1) Opiate dependence: Comment: (Stable on Suboxone - [facility]ed [facility]) Code(s): F11.20 - Opioid dependence, uncomplicated Category: Medical Qualifiers: Substance use status: uncomplicated Qualified Code(s): F11.20 - Opioid dependence, uncomplicated Plan: He continues on Suboxone daily, no signs of misuse or abuse. He has been sober from (2) HLD (hyperlipidemia): Code(s): E78.5 - Hyperlipidemia, unspecified Category: Medical Qualifiers: Hyperlipidemia type: mixed hyperlipidemia Qualified Code(s): E78.2 - Mixed hyperlipidemia Plan: Recent fasting lipid panel showing borderline high total cholesterol and LDL. For now will hold off on starting statin therapy. Will work on dietary modifications to reduce his total cholesterol and LDL. l (3) Nicotine dependence, cigarettes, uncomplicated: Comment: (onset 14yo, 3/4-1ppd x 45yrs, now 1/2ppd - 30pyh) Code(s): F17.210 - Nicotine dependence, cigarettes, uncomplicated Category: Medical Plan: Unfortunately still smoking. Patient reports Chantix was not effective. Has upcoming appointment with lung cancer screening program for CT screening. (4) Tubular adenoma: Comment: 11/07/20 colonoscopy complete with good to fair prep after copious [id number] mm HP ( Rectum), Two 8-10 mm TA (ascending), Moderate to severe diverticulosis, small hemorrhoid. Recommendations for repeat in 3 years Code(s): D36.9 - Benign neoplasm, unspecified site Category: Medical Plan: Has an upcoming appointment for colonoscopy (5) Acute bronchitis: Code(s): J20.9 - Acute bronchitis, unspecified Category: Medical Qualifiers: Bronchitis organism: other organism Qualified Code(s): J20.8 - Acute bronchitis due to other specified organisms Plan: A prescription for azithromycin (Z-Joshua) will be sent to the pharmacy for the patient to fill if he develops a productive cough or fevers, suggesting a bacterial infection. (6) Mass of left lower leg: Code(s): R22.42 - Localized swelling, mass and lump, left lower limb Category: Medical Plan: An order will be placed for a nonvascular soft tissue ultrasound of the left lower extremity to further evaluate the 8 cm mass found incidentally on his prior vascular study. If this is found to be problematic, a referral to general surgery will be considered for excision. Orders: Orders Lipid Panel 05/06/25 E78.2 - Mixed hyperlipidemia Comprehensive [place]. Panel Fast 05/06/25 E78.2 - Mixed hyperlipidemia Drug Screen Urine 05/06/25 F11.20 - Opioid dependence, uncomplicated Complete Blood Count no Diff 05/06/25 E78.2 - Mixed hyperlipidemia Prostate Specific Antigen Scr 05/06/25 E78.2 - Mixed hyperlipidemia, Z12.5 - Encounter for screening for malignant neoplasm of prostate US Extremity Nonvas Limited LT 05/06/25 R22.42 - Localized swelling, mass and lump, left lower limb Medications: New azithromycin For 250 mg dose pack: take 500 mg today (day 1), then 250 mg for 4 days (days 2-5) PO 6 tabs 0RF J20.9 - Acute bronchitis, unspecified
== END 2025-05-06 15:17 | disposition home or self-care (01) ==
LOC: HO.HMCH 14:05
PROVIDERS: PCP Physician Assistant; Visit Provider Physician Assistant
DX: F11.20 Opioid dependence, uncomplicated (principal); E78.2 Mixed hyperlipidemia; F17.210 Nicotine dependence, cigarettes, uncomplicated; D36.9 Benign neoplasm, unspecified site; J20.8 Acute bronchitis due to other specified organisms; R22.42 Localized swelling, mass and lump, left lower limb

== ENCOUNTER 2025-05-09 09:32 | Day surgery (SDC) | payer OTHER, SELFPAY ==
--- NOTE | 2025-05-07 10:57 | HO.ANESPROP2 ---
Documented by User: Meghan Mcdonald NP 05/07/25 10:59 HPI - Anesthesia Eval Consult details Narrative: 60yo M for Colonoscopy Suboxone daily for OUD - stable and followed by cleanslate per PCP. Recent utox negative Smoker PMFSH Active Problems Active Problems: All Active Problems Mass of left lower leg (Acute) Acute bronchitis (Acute) Colon cancer screening (Acute) Annual physical exam (Acute) Low libido (Acute) Varicose veins of right lower extremity with inflammation (Acute) Opiate dependence (Acute) HLD (hyperlipidemia) (Acute) Symptomatic varicose veins (Acute) Diverticulosis large intestine w/o perforation or abscess w/o bleeding (Acute) Tubular adenoma (Acute) Localized osteoarthritis of right knee (Acute) Right knee meniscal tear (Acute) Hemorrhoids (Acute) Nicotine dependence, cigarettes, uncomplicated (Acute) Past Medical History Medical History Colon cancer screening Localized osteoarthritis of right knee Opiate dependence HLD (hyperlipidemia) Tubular adenoma Arthritis DDD (degenerative disc disease), lumbar Sciatic leg pain Allergic rhinitis Nicotine dependence, cigarettes, uncomplicated Surgical History Surgical History History of colonoscopy History of right inguinal hernia repair History of elbow surgery Social History Social History Household Members: Spouse and Children Housing: Apartment Alcohol intake: current Alcohol intake frequency: a few times a month Alcohol type: beer Patient Tobacco Use Status: Current everyday Tobacco user Tobacco use type: Cigarette Cigarette Packs Per Day: 0.5 Cigarettes Per Day: 10 Years Smoked: (onset 14yo, 3/4-1ppd x 45yrs, now 1/2ppd - 30pyh) e-Cigarette/Vaping Use: Currently Using Second Hand Smoke Exposure: Yes Use of substances other than those prescribed or required for medical reasons: No Are you DNR?: No Advance Directives: No Advance Directives Information Provided: Yes service: No Current occupational status: employed 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 Cognitive needs: No Hearing needs: No Vision needs: No Meds Allergies Allergy/AdvReac Type Severity Reaction Status Date / Time bupropion AdvReac Intermediate mood Verified 05/06/25 14:53 changes Assessment and Plan Assessment Anesthesia Assessment: Chart Reviewed Documented by User: Skyler Collins MD 05/09/25 10:56 PMFSH Past Medical History Medical History Colon cancer screening Localized osteoarthritis of right knee Opiate dependence HLD (hyperlipidemia) Tubular adenoma Arthritis DDD (degenerative disc disease), lumbar Sciatic leg pain Allergic rhinitis Nicotine dependence, cigarettes, uncomplicated Functional capacity: independent ambulation Family History Family history of problems with anesthesia: No Surgical History Surgical History History of colonoscopy History of right inguinal hernia repair History of elbow surgery History of Problems with Anesthesia: No Social History Social History Household Members: Spouse and Children Housing: Apartment Alcohol intake: current Alcohol intake frequency: a few times a month Alcohol type: beer Patient Tobacco Use Status: Current everyday Tobacco user Tobacco use type: Cigarette Cigarette Packs Per Day: 0.5 Cigarettes Per Day: 10 Years Smoked: (onset 14yo, 3/4-1ppd x 45yrs, now 1/2ppd - 30pyh) e-Cigarette/Vaping Use: Currently Using Second Hand Smoke Exposure: Yes Use of substances other than those prescribed or required for medical reasons: No Are you DNR?: No Advance Directives: No Advance Directives Information Provided: Yes service: No Current occupational status: employed 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 Discussed Final Anesthetic Review Family History of Problems with Anesthesia: No History of Problems with Anesthesia: No NPO: Yes ASA Class: II and III Final Preanesthetic Review: No Changes in Pt Med Stat, Meds/Allgs Chart Reviewed, Consent Obtained/Reviewed and Anes Risks/Benef Reviewed Patient Risk: Low Procedure Risk: Low Anesthetic Plan Anesthetic Plan: MAC: Disposition: Standard PACU
[2025-05-07 14:12] VITALS: BMI 22.1
[2025-05-09 10:09] VITALS: BMI 21.9
[2025-05-09 10:14] VITALS: BP 115/79; PULSE 83; RESP 16; TEMP 36.5; O2SAT 93
[2025-05-09] MEDS: Lactated Ringers 1,000 ML 100 ML IVCONT (10:30)
--- NOTE | 2025-05-09 11:04 | MHC.SHP ---
Pre-Procedural Eval Section A - 24 Hr Update-Section A only Date of Service: 05/09/25 Section B - Complete if H&P > 30 days Chief Complaint: Benign neoplasm,screening Relevant Family History (Specify if Yes): No Relevant Social History: Tobacco Use Present Medications: see Short Stay Collaborative assessment Medical History: Significant History (Localized osteoarthritis of right knee Opiate dependence HLD (hyperlipidemia) Tubular adenoma Arthritis DDD (degenerative disc disease), lumbar Sciatic leg pain Allergic rhinitis Nicotine dependence, cigarettes, uncomplicated) History of Previous Operations: Relevant previous surgery/procedure and date(s) ( History of colonoscopy History of right inguinal hernia repair History of elbow surgery) Allergies: Allergies Allergy/AdvReac Type Severity Reaction Status Date / Time bupropion AdvReac Intermediate mood Verified 05/06/25 14:53 changes Review of Systems Sugical H&P ROS: Negative: Constitution, Cardiovascular, Respiratory, Neurological, Psychiatric, Hem-Onc, Allergic/Immunologic, Gastrointestinal, Genitourinary, Musculoskeletal, Integumentary, Endocrine and Eyes/Ears/Nose/Throat Exam Surgical H&P Exam: Normal: HEENT, Normal: Heart, Normal: Lungs, Normal: Extremities, Normal: Abdomen, Normal: Skin and Normal: Neurological Plan Diagnosis/Plan: Unchanged I have reviewed the history and physical and performed a pertinent physical examination on my patient. No changes have occurred unless specified. Time Spent With Patient Time: Total time managing care of this patient today ____ minutes.
--- NOTE | 2025-05-09 11:30 | HO.OPN-COLON ---
Colonoscopy Operative Note Operative Note Date of Service: 05/09/25 Narrative: Operative Information Procedure Description: Colonoscopy Indication: screening Anesthesia: MAC COLONOSCOPY Instrument: Olympus variable stiffness pediatric scope 190L Colonoscopy Monitoring: Vital signs and clinical assessment, continuous EKG monitoring, Pulse oximetry, Carbon Dioxide monitoring and blood pressure monitoring were done throughout the procedure. Colon withdrawal time was 7 minutes. Procedure: The patient was placed in the left lateral decubitis position and pre-procedure medications were administered. After a digital rectal examination of the ano-rectum, the video colonoscope was inserted into the rectum and advanced through the colon to the cecum/TI. The colonoscope was slowly withdrawn in a retrograde panoramic fashion and the colon mucosa was carefully examined including a retroflexed view of the rectum. Findings and interventions are described below. Procedure Difficulty: moderate Findings: Terminal Ileum-normal Cecum:normal Right sided retroflexion: normal Ascending Colon: normal Transverse Colon -normal Descending Colon:normal Sigmoid Colon: moderate diverticulosis Rectum: Retroflexion with small internal hemorrhoids seen, grade I Anorectum - normal Intervention: none Colon preparation: [place] Bowel Preparation Scale Right colon; 2 Transverse colon: 2 Left colon; 1-2 (0 = Unprepared colon segment with mucosa not seen due to solid stool that cannot be cleared. 1 = Portion of mucosa of the colon segment seen, but other areas of the colon segment not well seen due to staining, residual stool and/or opaque liquid. 2 = Minor amount of residual staining, small fragments of stool and/or opaque liquid, but mucosa of colon segment seen well. 3 = Entire mucosa of colon segment seen well with no residual staining, small fragments of stool or opaque liquid) Impression and Post Procedure Diagnosis: diverticulosis internal hemorrhoids Plan: High fiber diet leaflet Avoid straining at stool, epsom salts and sitz bath, anusol supps or cream Repeat Colonoscopy in 5 years due to some areas of fair prep on left or earlier if clinically indicated Above findings were reviewed with the patient and relevant handouts were provided if indicated.
[2025-05-09 11:36] VITALS: BP 110/70; PULSE 70; RESP 16; TEMP 36.5; O2SAT 93
[2025-05-09 11:45] VITALS: BP 112/66; PULSE 64; RESP 16; O2SAT 92
[2025-05-09 12:00] VITALS: BP 114/67; PULSE 64; RESP 16; TEMP 36.5; O2SAT 93
== END 2025-05-09 13:03 | disposition home or self-care (01) ==
PROVIDERS: PCP Physician Assistant; Visit Provider Internal Medicine Gastroenterology
PROC: 0DJD8ZZ Inspection of Lower Intestinal Tract, Via Natural or Artificial Opening Endoscopic (ICD-10-PCS; CPT 45378; principal; 2025-05-09 12:20)
DX: Z12.11 Encounter for screening for malignant neoplasm of colon (principal); Z86.0101 Personal history of adenomatous and serrated colon polyps; K57.30 Diverticulosis of large intestine without perforation or abscess without bleeding; K64.0 First degree hemorrhoids
CPT/HCPCS: 45378; J2003; J2704

== ENCOUNTER → 2025-05-09 09:32 | Outpatient (BNV) | payer OTHER, SELFPAY | PROVIDERS: PCP Physician Assistant; Visit Provider Internal Medicine Gastroenterology | DX: Z12.11 Encounter for screening for malignant neoplasm of colon (principal); K57.30 Diverticulosis of large intestine without perforation or abscess without bleeding; K64.0 First degree hemorrhoids | CPT/HCPCS: 45378 ==